=== PATIENT | female | born 1985 | race Caucasian/White ===

== ENCOUNTER 2017-09-14 12:57 | Emergency (ER) | payer OTHER ==
[~2017-09-14] VITALS: Ht 165.1 cm; Wt 86.2 kg
[~2017-09-14 12:57] MED LIST: ACE3 PO; ALB0.5 INH; AMOX-556 PO; ARIP5TAB28 PO; AZI250 PO; AZIT-18 PO; AZIT-9 PO; BACL-1 PO; BENZ200C38 PO; BUPR-128 PO; CALC-734 PO; CALC-965; CEP250 PO; CEP500 PO; CEPH-13 PO; CETI-169 PO; CHOL100061 PO; CITA-156 PO; CLA500 PO; CLI150 PO; CLON-303 *; CLON-303 PO; CLON-389 PO; CYC10 PO; CYCL10TA29 PO; CYCL15CA18 PO; DEXT5CAP PO; DOXY-181 PO; ESC10 PO; ETON1VAG7 VG; HYDR-385 PO; HYDR-6016 PO; HYDR100C9 PO; HYDR473S4 PO; HYDR473S47 PO; HYDR50CA48 PO; HYDROXYZINE PAMOATE; IBU600 PO; IBUP800T37 PO; KET10 PO; LOP2 PO; LOR1 PO; LOR5 PO; LOR5/325 PO; LORA-1456; LORA-674 PO; MELA3TAB45 PO; METH-278 PO; METH5TAB85 PO; MIR15 PO; MOM110R IH; NAP250 PO; ONDA4TAB PO; OXC300 PO; OXCA300T42 PO; OXYC-865 PO; OXYC1TAB54 PO; PAR20 PO; PARO-243 PO; PARO30TA71 PO; PER PO; PHEN100 PO; PHEN10TA PO; PRAV20TA66 PO; PRE20 PO; PRED-314 PO; PRED20TA6 PO; PREN-67 PO; PRO5 PO; PROM25SU9 RC; PROM5SYR PO; PROP60CA22; PROP60CA22 PO; PYRI50TA PO; QUET25TA PO; RANI150C17 PO; ROBC PO; SULF-198 PO; TOP25 PO; TOPI50CA6; TOPI50TA92 PO; TRAM-420 PO; TRAM-627 PO; VALP250C32 PO; [UNRECOGNIZED DRUG - CODE]; [UNRECOGNIZED DRUG - CODE]; [UNRECOGNIZED DRUG - CODE] PO; [UNRECOGNIZED DRUG - CODE] PO; [UNRECOGNIZED DRUG - OTHER]; [UNRECOGNIZED DRUG - OTHER]
[2017-09-14] MEDS ORDERED: predniSONE 20 MG TAB PO ONE (13:05)
[2017-09-14] MEDS ORDERED: diphenhydrAMINE 25 MG CAP PO ONE (13:05)
[2017-09-14] MEDS ORDERED: KETOROLAC 60 MG/2 ML VIAL IM ONE (13:05)
--- NOTE | 2017-09-14 13:07 | ER Report ---
History and Physical Time Seen By MD: 13:06 TUCKER/JANET CHIEF COMPLAINT: Migraine HISTORY OF PRESENT ILLNESS: Patient is a 29 through female history of migraine comes here she's been seen here numerous times currently on a care plan for migraine patient states his viable for 5 days [facility]'s [facility] here when she has breakthrough pain she's taken her home medications little benefit no focal deficits noted no additional complaints noted pain is localized primarily unilateral in the right side no photophobia or phonophobia no neurological complaints REVIEW OF SYSTEMS: Respiratory: No cough, no dyspnea. Cardiovascular: No chest pain, no palpitations. Gastrointestinal: No vomiting, no abdominal pain. Musculoskeletal: No back pain. Remainder of the 14 system rev: Yes Allergies: Coded Allergies: doxycycline (Verified Allergy, Severe, itchy/hives, 06/07/17) lamotrigine (Verified Adverse Reaction, Severe, itchy/hives, 06/07/17) naproxen (Verified Adverse Reaction, Severe, migraines, 06/07/17) Home Meds Reported Medications Quetiapine Fumarate (QUETIAPINE FUMARATE) 25 Mg Tablet, 25 MG PO QDAY 06/07/17 Bupropion Hcl (WELLBUTRIN) 100 Mg Tablet, 100 MG PO QDAY, TAB 10/06/15 Reviewed Nurses Notes: Yes Old Medical Records Reviewed: Yes Hx Smoking: Yes Smoking Status: Current: Every Day Smoker Exposure to Second Hand Smoke?: Yes Hx Substance Use Disorder: No Hx Alcohol Use: Yes Constitutional Vital Sign - Last 24 Hours 09/14/17 09/14/17 09/14/17 09/14/17 13:00 13:02 13:12 13:15 Pulse 95 90 Resp 20 B/P (MAP) 105/82 (90) 105/82 109/65 (80) Pulse Ox 94 96 O2 Delivery Room Air 09/14/17 09/14/17 09/14/17 09/14/17 13:27 13:30 13:42 13:45 Pulse 91 90 B/P (MAP) 112/82 (92) 110/70 (83) Pulse Ox 93 96 09/14/17 09/14/17 13:57 14:00 Pulse 84 B/P (MAP) 98/69 (79) Pulse Ox 95 Physical Exam General Appearance: The patient is alert, has no immediate need for airway protection and no current signs of toxicity. [ ] Eyes: Pupils equal and round no injection. Respiratory: Chest is non tender, lungs are clear to auscultation. Cardiac: regular rate and rhythm [ ] Gastrointestinal: Abdomen is soft and non tender, no masses, bowel sounds normal. Musculoskeletal: Neck: Neck is supple and non tender. Extremities have full range of motion and are non tender. Skin: No rashes or lesions. [ ] DIFFERENTIAL DIAGNOSIS: After history and physical exam differential diagnosis was considered for migraine Medical Decision Making ED Course/Re-evaluation ED Course ED clinical course medical decision making 32-year-old female with a history of chronic migraine was given her usual dose of medication she does feel better we' ll be discharge diagnosis chronic migraine Decision to Disposition Date: Sep 14, 2017 Decision to Disposition Time: 14:27 Depart Departure Latest Vital Signs Vital Signs Date Time Temp Pulse Resp B/P (MAP) Pulse Ox O2 Delivery O2 Flow Rate FiO2 09/14/17 14:00 98/69 (79) 09/14/17 13:57 84 95 09/14/17 13:02 20 Room Air Impression: Primary Impression: Headache Condition: Improved Disposition: HOME OR SELF-CARE Referrals: REECE ROSENBERG DNP, [facility] 5 Days Patient Instructions: Acute Headache (DC) CELINA MENENDEZ MD Sep 14, 2017 13:07
[2017-09-14 14:29] VITALS: BP 113/72
== END 2017-09-14 14:36 | disposition home or self-care (01) ==
LOC: ER 13:06
DX: G43.909 Migraine, unspecified, not intractable, without status migrainosus (principal); F17.210 Nicotine dependence, cigarettes, uncomplicated
CPT/HCPCS: 96372; 99283; J1885; J7512; Q0163

== ENCOUNTER 2017-10-11 02:07 | Emergency (ER) | payer OTHER ==
[~2017-10-11] VITALS: Ht 165.1 cm; Wt 86.2 kg
[2017-10-11 02:18] VITALS: BP 146/103
[2017-10-11] MEDS ORDERED: ALBU8.5H IH (02:32)
[2017-10-11] MEDS ORDERED: TOPI50TA92 PO (02:32)
[2017-10-11] MEDS ORDERED: PHEN200T32 PO (02:32)
[2017-10-11] MEDS ORDERED: CYCL10TA29 PO (02:32)
[2017-10-11] MEDS ORDERED: QUET25TA PO (02:32)
[2017-10-11] MEDS ORDERED: TRAZ-156 PO (02:32)
[2017-10-11] MEDS ORDERED: CHOL10005 PO (02:32)
[2017-10-11] MEDS ORDERED: CLON-303 PO (02:32)
[2017-10-11] MEDS ORDERED: PROL80 PO (02:32)
[2017-10-11] MEDS ORDERED: DICL-195 PO (02:32)
[2017-10-11] MEDS ORDERED: PRAV20TA65 PO (02:32)
[2017-10-11] MEDS ORDERED: CALC600T63 PO (02:32)
[2017-10-11] MEDS ORDERED: RANI-324 PO (02:32)
[2017-10-11] MEDS ORDERED: PARO-243 PO (02:32)
[2017-10-11] MEDS ORDERED: PROMETHAZINE 25 MG/ML 1 ML AMP IM ONE (02:35)
[2017-10-11] MEDS ORDERED: DIAZEPAM 10 MG/2 ML SYR IM ONE (02:35)
--- NOTE | 2017-10-11 02:42 | ER Report ---
History and Physical Time Seen By MD: 02:38 Hx. of Stated Complaint: MIGRAIN THAT STARTED YESTERDAY AND HAS GOTTEN WORSE TONIGHT HPI/ROS CHIEF COMPLAINT: Headache, migraine HISTORY OF PRESENT ILLNESS: 32-year-old female presents with her typical migraine except that it's on the left side only and behind the left eye, associated with photophobia and vomiting 1 in pseudoseizures 2 while entering the ER. Witnessed by mom brought her in. Mom states they do not live together in the 1 trailer home part. Her daughter called in distress and asked to be taken to the ER. Of note patient reports a sore throat and flu exposure from her kids who are in school. REVIEW OF SYSTEMS: Respiratory: No cough, no dyspnea. Cardiovascular: No chest pain, no palpitations. Gastrointestinal: No bloody vomiting, no abdominal pain. Musculoskeletal: No back pain. Allergies: Coded Allergies: doxycycline (Verified Allergy, Severe, itchy/hives, 10/11/17) lamotrigine (Verified Adverse Reaction, Severe, itchy/hives, 10/11/17) naproxen (Verified Adverse Reaction, Severe, migraines, 10/11/17) Home Meds Reported Medications Trazodone Hcl (TRAZODONE HCL) 50 Mg Tablet, 50 MG PO QHS 10/11/17 Topiramate (TOPIRAMATE) 50 Mg Tablet, 50 MG PO BID 10/11/17 Ranitidine Hcl (ZANTAC) 150 Mg Tablet, 150 MG PO BID, TAB 10/11/17 Quetiapine Fumarate (QUETIAPINE FUMARATE) 25 Mg Tablet, 25 MG PO 10/11/17 Phenazopyridine Hcl (PHENAZOPYRIDINE HCL) 200 Mg Tablet, 50 MG PO TID, TAB 10/11/17 Propranolol Hcl (PROPRANOLOL HCL) 80 Mg Capcr, 80 MG PO BID 10/11/17 Pravastatin Sodium (PRAVACHOL) 20 Mg Tablet, 40 MG PO QDAY, TAB 18 Paroxetine Hcl (PAXIL) 20 Mg Tablet, 40 MG PO QDAY, TAB 10/11/17 Diclofenac Sodium (DICLOFENAC SODIUM) 75 Mg Tablet.dr, 75 MG PO TID, TAB 10/11/17 Cyclobenzaprine Hcl (CYCLOBENZAPRINE HCL) 10 Mg Tablet, 10 MG PO TID, #9 TAB 10/11/17 Clonazepam (CLONAZEPAM) 1 Mg Tablet, 1 MG PO BID, #6 TAB 10/11/17 Cholecalciferol (Vitamin D3) (VITAMIN D3) 1,000 Unit Tablet, 1000 UNIT PO, TAB 10/11/17 Calcium Carbonate (CALCIUM) 600 Mg Tablet, 600 MG PO 10/11/17 Albuterol Sulfate 90 Mcg/Act (PROAIR HFA 90 MCG/ACT) 8.5 Gm Hfa.aer.ad, 1-2 PUFF IH 3-4XD, INHALER 10/11/17 Quetiapine Fumarate (QUETIAPINE FUMARATE) 25 Mg Tablet, 25 MG PO QDAY 06/07/17 Bupropion Hcl (WELLBUTRIN) 100 Mg Tablet, 100 MG PO QDAY, TAB 10/06/15 Hx Smoking: Yes Smoking Status: Current: Every Day Smoker Exposure to Second Hand Smoke?: Yes Hx Substance Use Disorder: No Hx Alcohol Use: Yes Constitutional Vital Sign - Last 24 Hours 10/11/17 02:18 Temp 98.2 Pulse 99 Resp 18 B/P (MAP) 146/103 Pulse Ox 97 O2 Delivery Room Air Physical Exam General Appearance: The patient is alert, has no immediate need for airway protection and no signs of toxicity. She appears to have a headache Eyes: Pupils equal and round no pallor or injection. ENT, Mouth: Mucous membranes are moist. Oropharynx is patent, mild erythema Respiratory: There are no retractions, lungs are clear to auscultation. Cardiovascular: Regular rate and rhythm. No murmurs gallops or rubs Gastrointestinal: Abdomen is soft and non tender, no masses, bowel sounds normal. Neurological: Normal gross neuro exam cranial nerves intact Skin: Warm and dry, no rashes. Musculoskeletal: Neck is supple non tender. Extremities are nontender, nonswollen and have full range of motion. No edema DIFFERENTIAL DIAGNOSIS: After history and physical exam differential diagnosis was considered for migraine no trauma to suggest intracranial hemorrhage recent CT scan or mass or other dangerous process recent ED visits treated for migraine and resolved she is on a patient care plan but is not aware of stipulations of that plan and states she only took Tylenol Motrin for her headache prior to arrival. Denies drugs or alcohol. Medical Decision Making Data Points Laboratory Hematology Test 10/11/17 03:08 Influenza Virus Type A (PCR) Negative (NEGATIVE) Influenza Virus Type B (PCR) Negative (NEGATIVE) Group A Streptococcus Screen Negative (NEGATIVE) Chemistry Test 10/11/17 03:08 Influenza Virus Type A (PCR) Negative (NEGATIVE) Influenza Virus Type B (PCR) Negative (NEGATIVE) Group A Streptococcus Screen Negative (NEGATIVE) ED Course/Re-evaluation ED Course Plan of care agreed-upon prior to orders placed Re-evaluation Patient sleeping easily aroused. Patient complains of ongoing pain does not feel like she can go home and sleep. I ordered one Ramona orally prior to discharge. I discussed her lab results treatment plan follow-up and reasons to return all questions were answered and understood. Mom present and will take the patient home. Decision to Disposition Date: Oct 11, 2017 Decision to Disposition Time: 04:04 Depart Departure Latest Vital Signs Vital Signs Date Time Temp Pulse Resp B/P (MAP) Pulse Ox O2 Delivery O2 Flow Rate FiO2 10/11/17 02:18 98.2 99 18 146/103 97 Room Air Impression: Primary Impression: Headache Additional Impression: Pseudoseizures Condition: Improved Disposition: HOME OR SELF-CARE New Scripts Butalbital/Aspirin/Caffeine (FIORINAL 50-325-40 MG CAPSULE) 1 Each Capsule 1-2 EACH PO Q4H, #20 CAPSULE Prov: ARSH MAYS MD 10/11/17 Patient Instructions: Migraine Headache (ED) Problem Qualifiers Primary Impression: Headache Headache type: other headache syndrome Qualified Codes: G44.89 - Other headache syndrome ARSH MAYS MD Oct 11, 2017 02:42
[2017-10-11] MEDS ORDERED: DIAZEPAM 5 MG TAB PO ONE (03:00)
[2017-10-11] MEDS ORDERED: DIAZEPAM 5 MG TAB ONE (03:00)
[2017-10-11] MEDS ORDERED: APAP/HYDROCODONE 325/7.5 TAB PO ONE (04:00)
[2017-10-11] MEDS ORDERED: BUTA1CAP51 PO (04:06)
== END 2017-10-11 04:40 | disposition home or self-care (01) ==
LOC: ER 02:48
DX: G44.89 Other headache syndrome (principal)
CPT/HCPCS: 87081; 87502; 87880; 96372; 99282; J2550

== ENCOUNTER 2017-10-18 15:09 | Emergency (ER) | payer OTHER ==
[~2017-10-18] VITALS: Ht 165.1 cm; Wt 83.9 kg
[~2017-10-18 15:09] MED LIST changes: +ALBU8.5H IH; +BUTA1CAP51 PO; +CALC600T63 PO; +CHOL10005 PO; +DICL-195 PO; +PHEN200T32 PO; +PRAV20TA65 PO; +PROL80 PO; +RANI-324 PO; +TRAZ-156 PO
--- NOTE | 2017-10-18 15:16 | ER Report ---
History and Physical Time Seen By MD: 15:15 HPI/ROS CHIEF COMPLAINT: Dark diarrhea HISTORY OF PRESENT ILLNESS: 29-year-old female presents with abdominal pain in the midepigastric and right upper quadrant area no prior abdominal surgery per patient report. Onset was "recent" .States she has never had diarrhea like this before and that has been explosive. She's been nauseated but has been taking marely and bananas to avoid vomiting. This strategy has been successful no fevers. No chest pain or shortness of breath. No urinary symptoms. No other concerns or complaints today. REVIEW OF SYSTEMS: Constitutional: No fever, no chills. Eyes: No discharge. ENT: No sore throat. Cardiovascular: No chest pain, no palpitations. Respiratory: No cough, no shortness of breath. Gastrointestinal: Otherwise negative Genitourinary: No hematuria. Musculoskeletal: No back pain. Skin: No rashes. Neurological: No headache. Allergies: Coded Allergies: doxycycline (Verified Allergy, Severe, itchy/hives, 10/18/17) lamotrigine (Verified Adverse Reaction, Severe, itchy/hives, 10/18/17) naproxen (Verified Adverse Reaction, Severe, migraines, 10/18/17) Home Meds Active Scripts Butalbital/Aspirin/Caffeine (FIORINAL 50-325-40 MG CAPSULE) 1 Each Capsule, 1-2 EACH PO Q4H, #20 CAPSULE Prov:ARSH MAYS MD 10/11/17 Reported Medications Trazodone Hcl (TRAZODONE HCL) 50 Mg Tablet, 50 MG PO QHS 10/11/17 Topiramate (TOPIRAMATE) 50 Mg Tablet, 50 MG PO BID 10/11/17 Ranitidine Hcl (ZANTAC) 150 Mg Tablet, 150 MG PO BID, TAB 10/11/17 Quetiapine Fumarate (QUETIAPINE FUMARATE) 25 Mg Tablet, 25 MG PO 10/11/17 Phenazopyridine Hcl (PHENAZOPYRIDINE HCL) 200 Mg Tablet, 50 MG PO TID, TAB 10/11/17 Propranolol Hcl (PROPRANOLOL HCL) 80 Mg Capcr, 80 MG PO BID 10/11/17 Pravastatin Sodium (PRAVACHOL) 20 Mg Tablet, 40 MG PO QDAY, TAB 10/11/17 Paroxetine Hcl (PAXIL) 20 Mg Tablet, 40 MG PO QDAY, TAB 10/11/17 Diclofenac Sodium (DICLOFENAC SODIUM) 75 Mg Tablet.dr, 75 MG PO TID, TAB 10/11/17 Cyclobenzaprine Hcl (CYCLOBENZAPRINE HCL) 10 Mg Tablet, 10 MG PO TID, #9 TAB 10/11/17 Clonazepam (CLONAZEPAM) 1 Mg Tablet, 1 MG PO BID, #6 TAB 10/11/17 Cholecalciferol (Vitamin D3) (VITAMIN D3) 1,000 Unit Tablet, 1000 UNIT PO, TAB 10/11/17 Calcium Carbonate (CALCIUM) 600 Mg Tablet, 600 MG PO 10/11/17 Albuterol Sulfate 90 Mcg/Act (PROAIR HFA 90 MCG/ACT) 8.5 Gm Hfa.aer.ad, 1-2 PUFF IH 3-4XD, INHALER 10/11/17 Quetiapine Fumarate (QUETIAPINE FUMARATE) 25 Mg Tablet, 25 MG PO QDAY 06/07/17 Bupropion Hcl (WELLBUTRIN) 100 Mg Tablet, 100 MG PO QDAY, TAB 10/06/15 Hx Smoking: Yes Smoking Status: Current: Every Day Smoker Exposure to Second Hand Smoke?: Yes Hx Substance Use Disorder: No Hx Alcohol Use: Yes Constitutional Vital Sign - Last 24 Hours 10/18/17 15:16 Temp 97.6 Pulse 86 Resp 16 B/P (MAP) 124/81 Pulse Ox 97 O2 Delivery Room Air Physical Exam General Appearance: The patient is alert, has no immediate need for airway protection and no signs of toxicity. She appears anxious and highly animated Eyes: Pupils equal and round no pallor or injection. ENT, Mouth: Mucous membranes are moist. Respiratory: There are no retractions, lungs are clear to auscultation. Cardiovascular: Regular rate and rhythm. No murmurs gallops or rubs Gastrointestinal: Abdomen is soft and tender midepigastric and right upper quadrant with negative Ayon sign and no guarding no rebound, no masses, bowel sounds normal. Neurological: Normal Psychiatric: Louise dramatic, anxious Skin: Warm and dry, no rashes. Musculoskeletal: Neck is supple non tender. Extremities are nontender, nonswollen and have full range of motion. No edema. DIFFERENTIAL DIAGNOSIS: After history and physical exam differential diagnosis was considered for upper GI bleed, lower GI bleed, gastritis,, disease, Munchhausen syndrome, peptic ulcer disease, this is an incomplete list of diagnoses considered Medical Decision Making Data Points Result Diagram: 10/18/17 1535 10/18/17 1535 Laboratory Hematology Test 10/18/17 15:15 10/18/17 15:35 Urine Color Yellow Urine Clarity Slightly-cloudy Urine pH 5.0 pH (4.8-9.5) Urine Specific [place] 1.008 Urine Protein Negative mg/dL (NEGATIVE) Urine Glucose (UA) Negative mg/dL (NEGATIVE) Urine Ketones Negative mg/dL (NEGATIVE) Urine Blood Negative (NEGATIVE) Urine Nitrite Negative (NEGATIVE) Urine Bilirubin Negative (NEGATIVE) Urine Urobilinogen Negative mg/dL (0.2-1.9) Urine Leukocyte Esterase Small (NEGATIVE) Urine RBC 1 /HPF (0-2/HPF) Urine WBC 2 /HPF (0-5/HPF) Urine Squamous Epithelial Cells Many /LPF (</=FEW) Urine Bacteria Negative /HPF (NONE-FEW) Urine Mucus None /HPF (NONE-FEW) Urine Opiates Screen Negative Urine Barbiturates Screen Positive Ur Tricyclic Antidepressants Screen Negative Urine Phencyclidine Screen Negative Urine Amphetamines Screen Negative Urine Benzodiazepines Screen Negative Urine Cocaine Screen Negative Urine Cannabinoids Screen Negative Red Blood Count 4.63 M/uL (4.17-5.56) Mean Corpuscular Volume 93.2 fL (80.0-96.0) Mean Corpuscular Hemoglobin 32.0 pg (26.0-33.0) Mean Corpuscular Hemoglobin Concent 34.3 g/dL (32.0-36.0) Red Cell Distribution Width 12.9 % (11.5-14.5) Mean Platelet Volume 8.6 fL (7.2-11.1) Neutrophils (%) (Auto) 49.2 % (39.4-72.5) Lymphocytes (%) (Auto) 41.2 % (17.6-49.6) Monocytes (%) (Auto) 6.6 % (4.1-12.4) Eosinophils (%) (Auto) 2.3 % (0.4-6.7) Basophils (%) (Auto) 0.7 % (0.3-1.4) Nucleated RBC Relative Count (auto) 0.0 /100WBC Neutrophils # (Auto) 7.0 K/uL (2.0-7.4) Lymphocytes # (Auto) 5.9 K/uL (1.3-3.6) Monocytes # (Auto) 0.9 K/uL (0.3-1.0) Eosinophils # (Auto) 0.3 K/uL (0.0-0.5) Basophils # (Auto) 0.1 K/uL (0.0-0.1) Nucleated RBC Absolute Count (auto) 0.01 K/uL Sodium Level 140 mmol/L (137-145) Potassium Level 3.8 mmol/L (3.5-5.0) Chloride Level 108 mmol/L (98-107) Carbon Dioxide Level 18 mmol/L (22-31) Blood Urea Nitrogen 12 mg/dl (7-18) Creatinine 0.90 mg/dl (0.52-1.04) Glomerular Filtration Rate Calc > 60.0 Random Glucose 104 mg/dl (75-110) Calcium Level 9.5 mg/dl (8.4-10.2) Total Bilirubin 0.2 mg/dl (0.2-1.3) Aspartate Amino Transf (AST/SGOT) 35 U/L (0-35) Alanine Aminotransferase (ALT/SGPT) 33 U/L (0-56) Alkaline Phosphatase 118 U/L (0-126) Total Protein 7.2 gm/dl (6.3-8.2) Albumin 4.2 g/dl (3.5-5.0) Lipase 43 U/L (23-300) Human Chorionic Gonadotropin, Qual Negative (NEGATIVE) Chemistry Test 10/18/17 15:15 10/18/17 15:35 Urine Color Yellow Urine Clarity Slightly-cloudy Urine pH 5.0 pH (4.8-9.5) Urine Specific [place] 1.008 Urine Protein Negative mg/dL (NEGATIVE) Urine Glucose (UA) Negative mg/dL (NEGATIVE) Urine Ketones Negative mg/dL (NEGATIVE) Urine Blood Negative (NEGATIVE) Urine Nitrite Negative (NEGATIVE) Urine Bilirubin Negative (NEGATIVE) Urine Urobilinogen Negative mg/dL (0.2-1.9) Urine Leukocyte Esterase Small (NEGATIVE) Urine RBC 1 /HPF (0-2/HPF) Urine WBC 2 /HPF (0-5/HPF) Urine Squamous Epithelial Cells Many /LPF (</=FEW) Urine Bacteria Negative /HPF (NONE-FEW) Urine Mucus None /HPF (NONE-FEW) Urine Opiates Screen Negative Urine Barbiturates Screen Positive Ur Tricyclic Antidepressants Screen Negative Urine Phencyclidine Screen Negative Urine Amphetamines Screen Negative Urine Benzodiazepines Screen Negative Urine Cocaine Screen Negative Urine Cannabinoids Screen Negative White Blood Count 14.3 k/uL (4.5-11.0) Red Blood Count 4.63 M/uL (4.17-5.56) Hemoglobin 14.8 g/dL (12.0-16.0) Hematocrit 43.2 % (34.0-47.0) Mean Corpuscular Volume 93.2 fL (80.0-96.0) Mean Corpuscular Hemoglobin 32.0 pg (26.0-33.0) Mean Corpuscular Hemoglobin Concent 34.3 g/dL (32.0-36.0) Red Cell Distribution Width 12.9 % (11.5-14.5) Platelet Count 262 K/uL (150-450) Mean Platelet Volume 8.6 fL (7.2-11.1) Neutrophils (%) (Auto) 49.2 % (39.4-72.5) Lymphocytes (%) (Auto) 41.2 % (17.6-49.6) Monocytes (%) (Auto) 6.6 % (4.1-12.4) Eosinophils (%) (Auto) 2.3 % (0.4-6.7) Basophils (%) (Auto) 0.7 % (0.3-1.4) Nucleated RBC Relative Count (auto) 0.0 /100WBC Neutrophils # (Auto) 7.0 K/uL (2.0-7.4) Lymphocytes # (Auto) 5.9 K/uL (1.3-3.6) Monocytes # (Auto) 0.9 K/uL (0.3-1.0) Eosinophils # (Auto) 0.3 K/uL (0.0-0.5) Basophils # (Auto) 0.1 K/uL (0.0-0.1) Nucleated RBC Absolute Count (auto) 0.01 K/uL Glomerular Filtration Rate Calc > 60.0 Calcium Level 9.5 mg/dl (8.4-10.2) Total Bilirubin 0.2 mg/dl (0.2-1.3) Aspartate Amino Transf (AST/SGOT) 35 U/L (0-35) Alanine Aminotransferase (ALT/SGPT) 33 U/L (0-56) Alkaline Phosphatase 118 U/L (0-126) Total Protein 7.2 gm/dl (6.3-8.2) Albumin 4.2 g/dl (3.5-5.0) Lipase 43 U/L (23-300) Human Chorionic Gonadotropin, Qual Negative (NEGATIVE) Toxicology Test 10/18/17 15:15 Urine Opiates Screen Negative Urine Barbiturates Screen Positive Ur Tricyclic Antidepressants Screen Negative Urine Phencyclidine Screen Negative Urine Amphetamines Screen Negative Urine Benzodiazepines Screen Negative Urine Cocaine Screen Negative Urine Cannabinoids Screen Negative Urinalysis Test 10/18/17 15:15 Urine Color Yellow Urine Clarity Slightly-cloudy Urine pH 5.0 pH (4.8-9.5) Urine Specific [place] 1.008 Urine Protein Negative mg/dL (NEGATIVE) Urine Glucose (UA) Negative mg/dL (NEGATIVE) Urine Ketones Negative mg/dL (NEGATIVE) Urine Blood Negative (NEGATIVE) Urine Nitrite Negative (NEGATIVE) Urine Bilirubin Negative (NEGATIVE) Urine Urobilinogen Negative mg/dL (0.2-1.9) Urine Leukocyte Esterase Small (NEGATIVE) Urine RBC 1 /HPF (0-2/HPF) Urine WBC 2 /HPF (0-5/HPF) Urine Squamous Epithelial Cells Many /LPF (</=FEW) Urine Bacteria Negative /HPF (NONE-FEW) Urine Mucus None /HPF (NONE-FEW) ED Course/Re-evaluation ED Course Plan of care agree upon prior to orders placed Re-evaluation 10/18/2017 5:11:44 pm patient in the bathroom has been making multiple attempts to obtain a stool sample for further testing has been able to do so thus far. Results discussed, prognosis homecare outpatient follow-up and reasons to return were discussed. Decision to Disposition Date: Oct 18, 2017 Decision to Disposition Time: 17:12 Depart Departure Latest Vital Signs Vital Signs Date Time Temp Pulse Resp B/P (MAP) Pulse Ox O2 Delivery O2 Flow Rate FiO2 10/18/17 15:16 97.6 86 16 124/81 97 Room Air Impression: Primary Impression: Abdominal pain Additional Impression: Diarrhea in adult patient Condition: Improved Disposition: HOME OR SELF-CARE New Scripts Loperamide Hcl/Simethicone (IMODIUM MULTI-SYMPTOM REL CPLT) 1 Each Tablet 1 EACH PO 2-4XD Y for DIARRHEA for 7 Days, #28 CAP Prov: ARSH MAYS MD 10/18/17 Ondansetron (ZOFRAN ODT) 4 Mg Tab.rapdis 4 MG PO Q6H Y for NAUSEA/VOMITING, #20 TAB.ABRAHAM 0 Refills Prov: ARSH MAYS MD 10/18/17 Famotidine (PEPCID) 20 Mg Tablet 20 MG PO QDAY Y for PAIN, #20 TAB Prov: ARSH MAYS MD 10/18/17 Dicyclomine Hcl (DICYCLOMINE HCL) 20 Mg Tablet 20 MG PO QID Y for CRAMPING for 7 Days, #20 CAP Prov: ARSH MAYS MD 10/18/17 Patient Instructions: Acute Diarrhea (ED) Problem Qualifiers Primary Impression: Abdominal pain Abdominal location: epigastric Qualified Codes: R10.13 - Epigastric pain ARSH MAYS MD Oct 18, 2017 15:16
[2017-10-18] MEDS ORDERED: LORazepam 2 MG/ML VIAL IVP ONE (15:45)
[2017-10-18] MEDS ORDERED: NS(*) 0.9% 1000 ML BAG 1,000 ML IV ONE (15:45)
[2017-10-18] MEDS ORDERED: FAMOTIDINE(*) 20MG/50ML PREMIX 50 ML IVPB ONE (15:45)
[2017-10-18] MEDS ORDERED: GI COCKTAIL 60 ML BTL PO PRN (15:45)
[2017-10-18] MEDS ORDERED: fentaNYL CITR 100 MCG/2 ML AMP IVP ONE (15:45)
[2017-10-18 15:52] LABS: PLATELET COUNT, AUTOMATED 262 K/uL (150-450)
[2017-10-18] MEDS ORDERED: LIDOCAINE 2% VISC SLN 15ML UDC PO ONE (16:10)
[2017-10-18] MEDS ORDERED: MAG HYD/AL HYD/SIMETH 30ML UDC PO ONE (16:10)
[2017-10-18] MEDS ORDERED: ATRO/SCOPOL/HYOSCY/PB 5 ML ELX PO ONE (16:10)
--- NOTE | 2017-10-18 16:50 | RADIOLOGY IMAGING REPORT ---
FACILITY: [facility] [place] PATIENT NAME: Miguel Moore : 1985 MR: [id number] V: [id number] EXAM DATE: ORDERING PHYSICIAN: ARSH MAYS TECHNOLOGIST: Location: [facility] Patient: Miguel Moore : 1985 Visit/Account:[id number] Date of Sevice: 10/18/2017 EXAMINATION: Portable AP Chest HISTORY: Abdominal pain. COMPARISON: 11/02/2014. FINDINGS: The lungs are clear. No focal consolidation or pleural effusion. No pneumothorax. Normal cardiomedi astinal silhouette, with normal heart size and pulmonary vascularity. Visualized osseous structures are unremarkable. IMPRESSION: Negative chest. Report Dictated By: Parvez Miller MD at 10/18/2017 4:45 PM Report E-Signed By: Parvez Miller MD at 10/18/2017 4:47 PM [id number]
--- NOTE | 2017-10-18 16:54 | RADIOLOGY IMAGING REPORT ---
FACILITY: [facility] PATIENT NAME: Miguel Moore : 1985 MR: [id number] V: [id number] EXAM DATE: ORDERING PHYSICIAN: ARSH MAYS TECHNOLOGIST: Location: [facility] Patient: Miguel Moore : 1985 Visit/Account:[id number] Date of Sevice: 10/18/2017 EXAMINATION: AP abdomen HISTORY: Abdominal pain. COMPARISON: CT abdomen/pelvis 01/15/2016. FINDINGS: Normal bowel gas pattern, with air scattered throughout normal-caliber loops of small bowel and colon . No radiographic evidence of obstruction. Moderate scattered colonic stool density. Moderate hepatomegaly. The liver measures 22 cm in length at the midclavicular line. No suspicious ca lcification. Visualized osseous structures appear intact. IMPRESSION: 1. Nonobstructive bowel gas pattern, with a moderate volume of colonic stool. 2. Hepatomegaly. Report Dictated By: Parvez Miller MD at 10/18/2017 4:47 PM Report E-Signed By: Parvez Miller MD at 10/18/2017 4:50 PM [id number]
[2017-10-18] MEDS ORDERED: FAMO20TA28 PO (17:18)
[2017-10-18] MEDS ORDERED: ONDA4TAB PO (17:18)
[2017-10-18] MEDS ORDERED: DICY20TA70 PO (17:18)
[2017-10-18] MEDS ORDERED: LOPE1TAB55 PO (17:18)
[2017-10-18 17:30] VITALS: BP 119/98
== END 2017-10-18 17:31 | disposition home or self-care (01) ==
LOC: ER 15:18
DX: R19.7 Diarrhea, unspecified (principal); R10.13 Epigastric pain
CPT/HCPCS: 71045; 74018; 80305; 81001; 83690; 84703; 85025; 96365; 99284; J3490; 82040; 82247; 82310; 82374; 82435; 82565; 82947; 84075; 84132; 84155; 84295; 84450; 84460; 84520

== ENCOUNTER 2017-10-25 11:45 | Emergency (ER) | payer OTHER ==
[~2017-10-25] VITALS: Ht 165.1 cm; Wt 84.8 kg
[~2017-10-25 11:45] MED LIST changes: +DICY20TA70 PO; +FAMO20TA28 PO; +LOPE1TAB55 PO
--- NOTE | 2017-10-25 11:53 | ER Report ---
History and Physical Time Seen By MD: 11:52 HPI/ROS CHIEF COMPLAINT: Tailbone pain HISTORY OF PRESENT ILLNESS: This is a 32-year-old female who presents to the emergency department for "tailbone pain". Patient states 2 days ago she slipped on some ice and fell flat on her bottom injuring her tailbone, [facility] today and instructed her to cancel her appointment with the chiropractor and come to the emergency department for evaluation. Patient states that she's had bad pain since the injury but no loss of bowel or bladder no saddle anesthesia. Patient states that it's been difficult to have a bowel movement because the pain is so intense. She has been treating her discomfort with [id number] medications as well as topical medications. Patient denies aches, chills, fevers, nausea or vomiting. REVIEW OF SYSTEMS: Respiratory: No cough, no dyspnea. Cardiovascular: No chest pain, no palpitations. Gastrointestinal: No vomiting, no abdominal pain. Musculoskeletal: As above. Allergies: Coded Allergies: doxycycline (Verified Allergy, Severe, itchy/hives, 10/25/17) lamotrigine (Verified Adverse Reaction, Severe, itchy/hives, 10/25/17) naproxen (Verified Adverse Reaction, Severe, migraines, 10/25/17) Uncoded Allergies: ORANGES (Adverse Reaction, Unknown, 10/25/17) SEAFOOD (Adverse Reaction, Unknown, 10/25/17) Home Meds Active Scripts Diclofenac Sodium (DICLOFENAC SODIUM) 75 Mg Tablet.dr, 75 MG PO BID, #20 TAB Prov:TIM BEAVERS [employer]- 10/25/17 Ondansetron (ZOFRAN ODT) 4 Mg Tab.rapdis, 4 MG PO Q6H Y for NAUSEA/VOMITING, # 20 TAB.ABRAHAM 0 Refills Prov:ASRH MAYS MD 10/18/17 Dicyclomine Hcl (DICYCLOMINE HCL) 20 Mg Tablet, 20 MG PO QID Y for CRAMPING for 7 Days, #20 CAP Prov:ARSH MAYS MD 10/18/17 Butalbital/Aspirin/Caffeine (FIORINAL 50-325-40 MG CAPSULE) 1 Each Capsule, 1-2 EACH PO Q4H, #20 CAPSULE Prov:ARSH MAYS MD 10/11/17 Reported Medications Trazodone Hcl (TRAZODONE HCL) 50 Mg Tablet, 50 MG PO QHS 10/11/17 Topiramate (TOPIRAMATE) 50 Mg Tablet, 50 MG PO BID 10/11/17 Pravastatin Sodium (PRAVACHOL) 20 Mg Tablet, 40 MG PO QDAY, TAB 10/11/17 Paroxetine Hcl (PAXIL) 20 Mg Tablet, 40 MG PO QDAY, TAB 10/11/17 Diclofenac Sodium (DICLOFENAC SODIUM) 75 Mg Tablet.dr, 75 MG PO TID, TAB 10/11/17 Clonazepam (CLONAZEPAM) 1 Mg Tablet, 1 MG PO BID, #6 TAB 10/11/17 Cholecalciferol (Vitamin D3) (VITAMIN D3) 1,000 Unit Tablet, 1000 UNIT PO, TAB 10/11/17 Calcium Carbonate (CALCIUM) 600 Mg Tablet, 600 MG PO 10/11/17 Albuterol Sulfate 90 Mcg/Act (PROAIR HFA 90 MCG/ACT) 8.5 Gm Hfa.aer.ad, 1-2 PUFF IH 3-4XD, INHALER 10/11/17 Discontinued Reported Medications Ranitidine Hcl (ZANTAC) 150 Mg Tablet, 150 MG PO BID, TAB 10/11/17 Quetiapine Fumarate (QUETIAPINE FUMARATE) 25 Mg Tablet, 25 MG PO 10/11/17 Phenazopyridine Hcl (PHENAZOPYRIDINE HCL) 200 Mg Tablet, 50 MG PO TID, TAB 10/11/17 Propranolol Hcl (PROPRANOLOL HCL) 80 Mg Capcr, 80 MG PO BID 10/11/17 Cyclobenzaprine Hcl (CYCLOBENZAPRINE HCL) 10 Mg Tablet, 10 MG PO TID, #9 TAB 10/11/17 Quetiapine Fumarate (QUETIAPINE FUMARATE) 25 Mg Tablet, 25 MG PO QDAY 06/07/17 Bupropion Hcl (WELLBUTRIN) 100 Mg Tablet, 100 MG PO QDAY, TAB 10/06/15 Discontinued Scripts Loperamide Hcl/Simethicone (IMODIUM MULTI-SYMPTOM REL CPLT) 1 Each Tablet, 1 EACH PO 2-4XD Y for DIARRHEA for 7 Days, #28 CAP Prov:ARSH MAYS MD 10/18/17 Famotidine (PEPCID) 20 Mg Tablet, 20 MG PO QDAY Y for PAIN, #20 TAB Prov:ARSH MAYS MD 10/18/17 Past Medical/Surgical History Patient has a past medical and surgical history of seizures, migraines, hypercholesterolemia, asthma, tubal ligation, chronic back pain, on the treatment program, PTSD, depression, anxiety, suicide attempt, right thumb injury, bursa removed from hip, wears dentures, all teeth have been extracted. Reviewed Nurses Notes: Yes Hx Smoking: Yes Smoking Status: Current: Every Day Smoker Exposure to Second Hand Smoke?: Yes Hx Substance Use Disorder: No Hx Alcohol Use: Yes Constitutional Vital Sign - Last 24 Hours 10/25/17 10/25/17 10/25/17 10/25/17 11:45 11:49 12:15 12:30 Temp 97.5 Pulse 90 92 69 Resp 20 B/P (MAP) 122/84 105/66 (79) Pulse Ox 90 93 10/25/17 10/25/17 10/25/17 10/25/17 12:35 12:40 12:41 13:32 Pulse 71 68 70 B/P (MAP) 98/60 (73) 108/50 (69) Pulse Ox 91 91 92 Physical Exam General Appearance: The patient is alert, has no immediate need for airway protection and no current signs of toxicity. Eyes: Pupils equal and round no injection. Respiratory: Chest is non tender, lungs are clear to auscultation. Cardiac: regular rate and rhythm, no murmurs, clicks or rubs. Gastrointestinal: Abdomen is soft and non tender, no masses, bowel sounds normal. Musculoskeletal: Neck: Neck is supple and non tender. Tenderness from the thoracic spine down to the sacrum and coccyx. Hypersensitive to touch. Extremities have full range of motion and are non tender. Skin: No rashes or lesions. No contusions. DIFFERENTIAL DIAGNOSIS: After history and physical exam differential diagnosis was considered for contusion, coccyx fracture, sacral fracture, lumbar fracture , lumbar strain and sacral strain. Medical Decision Making EKG/Imaging Imaging TECHNIQUE: LUMBAR SPINE 2 OR 3 VIEW, SACRUM COCCYX COMPARISON: CT abdomen and pelvis April 06, 2016 FINDINGS: Lumbar spine: There are 5 nonrib-bearing lumbar-type vertebral bodies. No evidence of fracture or dislocation. No significant degenerative findings. Pelvis: The pelvic ring is intact. No fracture identified. The calcific densities projected in the pelvis along the right pelvic side wall are of uncertain significance. IMPRESSION: No acute osseous abnormality. Report Dictated By: Tianna Rivera MD at 10/25/2017 12:58 PM Report E-Signed By: Tianna Rivera MD at 10/25/2017 1:04 PM WSN:[id number] INDICATION: fall 2 days ago, pain. DATE: 10/25/2017 12:58 PM. TECHNIQUE: LUMBAR SPINE 2 OR 3 VIEW, SACRUM COCCYX COMPARISON: CT abdomen and pelvis April 06, 2016 FINDINGS: Lumbar spine: There are 5 nonrib-bearing lumbar-type vertebral bodies. No evidence of fracture or dislocation. No significant degenerative findings. Pelvis: The pelvic ring is intact. No fracture identified. The calcific densities projected in the pelvis along the right pelvic side wall are of uncertain significance. IMPRESSION: No acute osseous abnormality. Report Dictated By: Tianna Rivera MD at 10/25/2017 12:58 PM Report E-Signed By: Tianna Rivera MD at 10/25/2017 1:04 PM [id number] ED Course/Re-evaluation ED Course The patient was admitted to room. A history of physical were obtained. Differential diagnoses were considered. A lumbar and sacrum and coccyx x-ray were obtained. X-ray results were unremarkable for any acute osseous abnormalities. Patient was given 10 mg by mouth Toradol. Patient states she can take some of the other NSAIDs just not naproxen. I did review these results with the patient to tell her that this is likely a contusion that she did not break anything and this will be sore for maybe a week or 2, she can manage this pain at home with [id number] medications I did send a precaution for diclofenac over to her pharmacy. Patient asked for stronger pain medications I told her that the anti-inflammatories will be better for her, as well as physical therapy, which I did write a prescription for. I did tell her to follow up with her [facility] provider in 2 days. Decision to Disposition Date: Oct 25, 2017 Decision to Disposition Time: 13:22 Depart Departure Latest Vital Signs Vital Signs Date Time Temp Pulse Resp B/P (MAP) Pulse Ox O2 Delivery O2 Flow Rate FiO2 10/25/17 13:32 70 108/50 (69) 92 10/25/17 11:49 97.5 20 Impression: Primary Impression: Coccyx pain Condition: Improved Disposition: HOME OR SELF-CARE New Scripts Diclofenac Sodium (DICLOFENAC SODIUM) 75 Mg Tablet. 75 MG PO BID, #20 TAB Prov: TIM BEAVERS 10/25/17 Patient Instructions: Coccyx Injury (ED) Additional Instructions: Drink plenty of fluids. Get plenty of rest. Take the medications as prescribed. Keep your Primary care appointment on . May return to the ED for worsening symptoms or any other concerns. TIM BEAVERS Oct 25, 2017 11:53
[2017-10-25] MEDS ORDERED: KETOROLAC TROM 10MG TAB PO ONE (12:40)
--- NOTE | 2017-10-25 13:08 | RADIOLOGY IMAGING REPORT ---
FACILITY: [facility] [place] PATIENT NAME: Miguel Moore : 1985 MR: [id number] V: [id number] EXAM DATE: ORDERING PHYSICIAN: TIM BEAVERS TECHNOLOGIST: Location: [facility] [place] Patient: Miguel Moore : 1985 Visit/Account:[id number] Date of Sevice: 10/25/2017 INDICATION: fall 2 days ago, pain. DATE: 10/25/2017 12:58 PM. TECHNIQUE: LUMBAR SPINE 2 OR 3 VIEW, SACRUM COCCYX COMPARISON: CT abdomen and pelvis April 06, 2016 FINDINGS: Lumbar spine: There are 5 nonrib-bearing lumbar-type vertebral bodies. No evidence of fracture or dis location. No significant degenerative findings. Pelvis: The pelvic ring is intact. No fracture identified. The calcific densities projected in the pe lvis along the right pelvic side wall are of uncertain significance. IMPRESSION: No acute osseous abnormality. Report Dictated By: Tianna Rivera MD at 10/25/2017 12:58 PM Report E-Signed By: Tianna Rivera MD at 10/25/2017 1:04 PM [id number]
--- NOTE | 2017-10-25 13:08 | RADIOLOGY IMAGING REPORT ---
FACILITY: [facility] PATIENT NAME: Miguel Moore : 1985 MR: [id number] V: [id number] EXAM DATE: ORDERING PHYSICIAN: TIM BEAVERS TECHNOLOGIST: [place] [facility] [place] : 1985 Visit/Account:[id number] Date of Sevice: 10/25/2017 INDICATION: fall 2 days ago, pain. DATE: 10/25/2017 12:58 PM. TECHNIQUE: LUMBAR SPINE 2 OR 3 VIEW, SACRUM COCCYX COMPARISON: CT abdomen and pelvis April 06, 2016 FINDINGS: Lumbar spine: There are 5 nonrib-bearing lumbar-type vertebral bodies. No evidence of fracture or dis location. No significant degenerative findings. Pelvis: The pelvic ring is intact. No fracture identified. The calcific densities projected in the pe lvis along the right pelvic side wall are of uncertain significance. IMPRESSION: No acute osseous abnormality. Report Dictated By: Tianna Rivera MD at 10/25/2017 12:58 PM Report E-Signed By: Tianna Rivera MD at 10/25/2017 1:04 PM [id number]
[2017-10-25] MEDS ORDERED: DICL-195 PO (13:24)
[2017-10-25 13:32] VITALS: BP 108/50
== END 2017-10-25 13:30 | disposition home or self-care (01) ==
LOC: ER 11:51
DX: M53.3 Sacrococcygeal disorders, not elsewhere classified (principal)
CPT/HCPCS: 72100; 72220; 99283

== ENCOUNTER 2018-05-20 15:49 | Emergency (ER) | payer OTHER ==
[~2018-05-20 15:49] MED LIST changes: +CLON-304 PO; -RANI-324 PO; +RANI-366 PO; -TRAZ-156 PO; +TRAZ50TA34 PO
--- NOTE | 2018-05-20 16:00 | ER Report ---
History and Physical Time Seen By MD: 15:59 HPI/ROS CHIEF COMPLAINT: Abdominal pain HISTORY OF PRESENT ILLNESS: 33-year-old female patient presents to emergency room with complaint of abdominal pain. Patient states that she's been having pain for the last 24 hours. She states that she has had some nausea but states that she took some marely which seemed to help considerably. She states that she has pain with any type of movement or activity. She denies any vomiting or diarrhea. She states that aside from the marely she is not taking any medication for this. She states the pain doesn't seem to radiate anywhere else. She denies having any fevers or chills. REVIEW OF SYSTEMS: Respiratory: No cough, no dyspnea. Cardiovascular: No chest pain, no palpitations. Gastrointestinal: As noted above Musculoskeletal: No back pain. Allergies: Coded Allergies: doxycycline (Verified Allergy, Severe, itchy/hives, 10/25/17) lamotrigine (Verified Adverse Reaction, Severe, itchy/hives, 10/25/17) naproxen (Verified Adverse Reaction, Severe, migraines, 10/25/17) Uncoded Allergies: ORANGES (Adverse Reaction, Unknown, 10/25/17) SEAFOOD (Adverse Reaction, Unknown, 10/25/17) Home Meds Active Scripts Hydrocodone Bit/Acetaminophen (HYDROCODON-ACETAMINOPHEN 5-325) 1 Each Tablet, 1 EACH PO Q4-6H PRN for PAIN, #12 TAB Prov:ANTONETTE MENEZES [facility] 05/20/18 Metronidazole (FLAGYL) 500 Mg Tablet, 500 MG PO BID, #20 TAB Prov:ANTONETTE MENEZES [facility] 05/20/18 Amoxicillin/Pot Clav 875-125 Mg Tab (AUGMENTIN 875-125 TABLET) 1 Each Tablet, 1 TAB PO Q12H, #20 TAB Prov:ANTONETTE MENEZES [facility] 05/20/18 Reported Medications Sertraline Hcl (SERTRALINE HCL) 50 Mg Tablet, 1 TAB PO QDAY, TAB 05/20/18 Ranitidine Hcl (ZANTAC) 150 Mg Tablet, 300 MG PO BID, TAB 05/20/18 Propranolol Hcl (PROPRANOLOL HCL) 80 Mg Capcr, 80 MG PO BID 05/20/18 Cyclobenzaprine Hcl (CYCLOBENZAPRINE HCL) 10 Mg Tablet, 10 MG PO TID, #9 TAB 05/20/18 Cetirizine Hcl (ZYRTEC) 10 Mg Tablet, 10 MG PO QDAY, TAB 05/20/18 Amitriptyline Hcl (AMITRIPTYLINE HCL) 50 Mg Tablet, 50 MG PO QHS, #5 TAB 05/20/18 Topiramate (TOPIRAMATE) 50 Mg Tablet, 50 MG PO BID 10/11/17 Pravastatin Sodium (PRAVACHOL) 20 Mg Tablet, 40 MG PO QDAY, TAB 10/11/17 Paroxetine Hcl (PAXIL) 20 Mg Tablet, 40 MG PO QDAY, TAB 10/11/17 Clonazepam (CLONAZEPAM) 1 Mg Tablet, 1 MG PO BID, #6 TAB 10/11/17 Cholecalciferol (Vitamin D3) (VITAMIN D3) 1,000 Unit Tablet, 1000 UNIT PO, TAB 10/11/17 Albuterol Sulfate 90 Mcg/Act (PROAIR HFA 90 MCG/ACT) 8.5 Gm Hfa.aer.ad, 1-2 PUFF IH 3-4XD, INHALER 10/11/17 Discontinued Reported Medications Trazodone Hcl (TRAZODONE HCL) 50 Mg Tablet, 50 MG PO QHS 10/11/17 Diclofenac Sodium (DICLOFENAC SODIUM) 75 Mg Tablet.dr, 75 MG PO TID, TAB 10/11/17 Calcium Carbonate (CALCIUM) 600 Mg Tablet, 600 MG PO 10/11/17 Discontinued Scripts Diclofenac Sodium (DICLOFENAC SODIUM) 75 Mg Tablet.dr, 75 MG PO BID, #20 TAB Prov:TIM BEAVERS [employer] 10/25/17 Ondansetron (ZOFRAN ODT) 4 Mg Tab.rapdis, 4 MG PO Q6H PRN for NAUSEA/VOMITING, #20 TAB.ABRAHAM 0 Refills Prov:ARSH MAYS MD 10/18/17 Dicyclomine Hcl (DICYCLOMINE HCL) 20 Mg Tablet, 20 MG PO QID PRN for CRAMPING for 7 Days, #20 CAP Prov:ARSH MAYS MD 10/18/17 Butalbital/Aspirin/Caffeine (FIORINAL 50-325-40 MG CAPSULE) 1 Each Capsule, 1-2 EACH PO Q4H, #20 CAPSULE Prov:ARSH MAYS MD 10/11/17 Past Medical/Surgical History Patient has a past medical history of seizures, migraines, hyperlipidemia, asthma, back pain, PTSD, depression, suicide attempt. Patient has a surgical history of dental surgery, bursa removed from right hip, right thumb surgery, tubal ligation. Patient has a family medical history of stroke, diabetes. Reviewed Nurses Notes: Yes Hx Smoking: Yes Smoking Status: Current: Every Day Smoker Exposure to Second Hand Smoke?: Yes Hx Substance Use Disorder: No Hx Alcohol Use: No Constitutional Vital Sign - Last 24 Hours 05/20/18 05/20/18 05/20/18 15:57 16:00 16:30 Temp 98.4 Pulse 94 92 86 Resp 18 B/P (MAP) 120/75 114/72 (86) 101/72 (82) Pulse Ox 93 95 96 Physical Exam General Appearance: The patient is alert, has no immediate need for airway protection and no current signs of toxicity. Respiratory: Chest is non tender, lungs are clear to auscultation. Cardiac: regular rate and rhythm Gastrointestinal: Abdomen is soft and tender in the right lower quadrant, no masses, bowel sounds normal. Musculoskeletal: Neck: Neck is supple and non tender. Extremities have full range of motion and are non tender. Skin: No rashes or lesions. DIFFERENTIAL DIAGNOSIS: After history and physical exam differential diagnosis was considered for abdominal pain including but not limited to appendicitis, cholecystitis, gastritis and urinary tract infection. Medical Decision Making Data Points Result Diagram: 05/20/18 1608 05/20/18 1608 Laboratory Hematology Test 05/20/18 15:53 05/20/18 16:08 Urine Color Yellow Urine Clarity Clear Urine pH 6.0 pH (4.8-9.5) Urine Specific Notrees 1.011 Urine Protein Negative mg/dL (NEGATIVE) Urine Glucose (UA) Negative mg/dL (NEGATIVE) Urine Ketones Negative mg/dL (NEGATIVE) Urine Blood Negative (NEGATIVE) Urine Nitrite Negative (NEGATIVE) Urine Bilirubin Negative (NEGATIVE) Urine Urobilinogen Negative mg/dL (0.2-1.9) Urine Leukocyte Esterase Negative (NEGATIVE) Urine RBC <1 /HPF (0-2/HPF) Urine WBC <1 /HPF (0-5/HPF) Urine Squamous Epithelial Cells Many /LPF (</=FEW) Urine Bacteria Negative /HPF (NONE-FEW) Urine Mucus None /HPF (NONE-FEW) Red Blood Count 4.60 M/uL (4.17-5.56) Mean Corpuscular Volume 92.4 fL (80.0-96.0) Mean Corpuscular Hemoglobin 31.3 pg (26.0-33.0) Mean Corpuscular Hemoglobin Concent 33.9 g/dL (32.0-36.0) Red Cell Distribution Width 13.5 % (11.5-14.5) Mean Platelet Volume 8.9 fL (7.2-11.1) Neutrophils (%) (Auto) 54.1 % (39.4-72.5) Lymphocytes (%) (Auto) 38.0 % (17.6-49.6) Monocytes (%) (Auto) 5.5 % (4.1-12.4) Eosinophils (%) (Auto) 1.6 % (0.4-6.7) Basophils (%) (Auto) 0.8 % (0.3-1.4) Nucleated RBC Relative Count (auto) 0.1 /100WBC Neutrophils # (Auto) 8.3 K/uL (2.0-7.4) Lymphocytes # (Auto) 5.8 K/uL (1.3-3.6) Monocytes # (Auto) 0.8 K/uL (0.3-1.0) Eosinophils # (Auto) 0.2 K/uL (0.0-0.5) Basophils # (Auto) 0.1 K/uL (0.0-0.1) Nucleated RBC Absolute Count (auto) 0.01 K/uL Sodium Level 140 mmol/L (137-145) Potassium Level 3.9 mmol/L (3.5-5.0) Chloride Level 109 mmol/L (98-107) Carbon Dioxide Level 20 mmol/L (22-31) Blood Urea Nitrogen 13 mg/dl (7-18) Creatinine 1.00 mg/dl (0.52-1.04) Glomerular Filtration Rate Calc > 60.0 Random Glucose 107 mg/dl (75-110) Calcium Level 9.5 mg/dl (8.4-10.2) Total Bilirubin 0.3 mg/dl (0.2-1.3) Aspartate Amino Transf (AST/SGOT) 41 U/L (0-35) Alanine Aminotransferase (ALT/SGPT) 35 U/L (0-56) Alkaline Phosphatase 107 U/L (0-126) C-Reactive Protein 4.3 mg/dl (<1.0) Total Protein 7.4 g/dl (6.3-8.2) Albumin 4.3 g/dl (3.5-5.0) Amylase Level 50 U/L (0-110) Lipase 27 U/L (23-300) Chemistry Test 05/20/18 15:53 05/20/18 16:08 Urine Color Yellow Urine Clarity Clear Urine pH 6.0 pH (4.8-9.5) Urine Specific Notrees 1.011 Urine Protein Negative mg/dL (NEGATIVE) Urine Glucose (UA) Negative mg/dL (NEGATIVE) Urine Ketones Negative mg/dL (NEGATIVE) Urine Blood Negative (NEGATIVE) Urine Nitrite Negative (NEGATIVE) Urine Bilirubin Negative (NEGATIVE) Urine Urobilinogen Negative mg/dL (0.2-1.9) Urine Leukocyte Esterase Negative (NEGATIVE) Urine RBC <1 /HPF (0-2/HPF) Urine WBC <1 /HPF (0-5/HPF) Urine Squamous Epithelial Cells Many /LPF (</=FEW) Urine Bacteria Negative /HPF (NONE-FEW) Urine Mucus None /HPF (NONE-FEW) White Blood Count 15.3 k/uL (4.5-11.0) Red Blood Count 4.60 M/uL (4.17-5.56) Hemoglobin 14.4 g/dL (12.0-16.0) Hematocrit 42.5 % (34.0-47.0) Mean Corpuscular Volume 92.4 fL (80.0-96.0) Mean Corpuscular Hemoglobin 31.3 pg (26.0-33.0) Mean Corpuscular Hemoglobin Concent 33.9 g/dL (32.0-36.0) Red Cell Distribution Width 13.5 % (11.5-14.5) Platelet Count 305 K/uL (150-450) Mean Platelet Volume 8.9 fL (7.2-11.1) Neutrophils (%) (Auto) 54.1 % (39.4-72.5) Lymphocytes (%) (Auto) 38.0 % (17.6-49.6) Monocytes (%) (Auto) 5.5 % (4.1-12.4) Eosinophils (%) (Auto) 1.6 % (0.4-6.7) Basophils (%) (Auto) 0.8 % (0.3-1.4) Nucleated RBC Relative Count (auto) 0.1 /100WBC Neutrophils # (Auto) 8.3 K/uL (2.0-7.4) Lymphocytes # (Auto) 5.8 K/uL (1.3-3.6) Monocytes # (Auto) 0.8 K/uL (0.3-1.0) Eosinophils # (Auto) 0.2 K/uL (0.0-0.5) Basophils # (Auto) 0.1 K/uL (0.0-0.1) Nucleated RBC Absolute Count (auto) 0.01 K/uL Glomerular Filtration Rate Calc > 60.0 Calcium Level 9.5 mg/dl (8.4-10.2) Total Bilirubin 0.3 mg/dl (0.2-1.3) Aspartate Amino Transf (AST/SGOT) 41 U/L (0-35) Alanine Aminotransferase (ALT/SGPT) 35 U/L (0-56) Alkaline Phosphatase 107 U/L (0-126) C-Reactive Protein 4.3 mg/dl (<1.0) Total Protein 7.4 g/dl (6.3-8.2) Albumin 4.3 g/dl (3.5-5.0) Amylase Level 50 U/L (0-110) Lipase 27 U/L (23-300) Urinalysis Test 05/20/18 15:53 Urine Color Yellow Urine Clarity Clear Urine pH 6.0 pH (4.8-9.5) Urine Specific Notrees 1.011 Urine Protein Negative mg/dL (NEGATIVE) Urine Glucose (UA) Negative mg/dL (NEGATIVE) Urine Ketones Negative mg/dL (NEGATIVE) Urine Blood Negative (NEGATIVE) Urine Nitrite Negative (NEGATIVE) Urine Bilirubin Negative (NEGATIVE) Urine Urobilinogen Negative mg/dL (0.2-1.9) Urine Leukocyte Esterase Negative (NEGATIVE) Urine RBC <1 /HPF (0-2/HPF) Urine WBC <1 /HPF (0-5/HPF) Urine Squamous Epithelial Cells Many /LPF (</=FEW) Urine Bacteria Negative /HPF (NONE-FEW) Urine Mucus None /HPF (NONE-FEW) EKG/Imaging Imaging COMPUTED TOMOGRAPHY OF THE Abdomen and Pelvis with CONTRAST INDICATION: Abdominal pain. TECHNIQUE: Contiguous axial 3.[address] images were obtained through the abdomen and pelvis after 75 mL [id number]. Coronal and sagittal reformatted images were submitted. COMPARISON: CT abdomen and pelvis April 06, 2016. FINDINGS: Lung bases: The lung bases are clear. Liver and hepatic vasculature: Liver parenchymal density is diffusely decreased. Mild fatty infiltration adjacent to the falciform. The hepatic and portal veins are well opacified. Gallbladder and bile ducts: Normal. Spleen: Normal spleen. Small splenule near the hilum. Pancreas: Normal Adrenals: Normal Kidneys, ureters and bladder: No hydronephrosis or collecting system obstruction. Symmetric enhancement. Normal-appearing bladder. There is a pessary in place. Retroperitoneum and aorta: Normal caliber aorta. GI tract, mesentery and peritoneum: Normal appendix. There is an area of mild to moderate inflammation in the fat adjacent to the sigmoid colon in the low mid pelvis on series 2 image 129. The colonic wall is mildly thickened. The stranding outlines several fat lobulations. No bowel obstruction. No free fluid or free air. Uterus and adnexa: The uterus is grossly unremarkable. Bones and soft tissues: No acute osseous abnormality. IMPRESSION: 1. Stranding adjacent to the sigmoid colon in the mid lower pelvis with adjacent colonic wall thickening may represent colitis or epiploic appendagitis as there did not appear to be diverticula in this region. Follow-up colonoscopy may be warranted to exclude an underlying colonic wall lesion. 2. Hepatic steatosis. 3. Additional chronic findings as above. One of the following dose optimization techniques was utilized in the perfor jose of this exam: Automated exposure control; adjustment of the mA and/or kV according to the patient's size; or use of an iterative reconstruction technique. Specific details can be referenced in the facility's radiology CT exam operational policy. Report Dictated By: Tianna Rivera MD at 05/20/2018 4:57 PM Report E-Signed By: Tianna Rivera MD at 05/20/2018 5:12 PM ED Course/Re-evaluation ED Course Patient was medicated exam room, history and physical were obtained. Differential diagnoses were considered. On examination lungs are clear, heart is regular, abdomen is soft and tender in the right lower quadrant. A CBC, CMP, urinalysis, CT scan of abdomen and pelvis were done. Patient had an elevated white count of 15,000 with no left shift. CMP was unremarkable. The CAT scan did show some inflammation and thickening at the sigmoid colon consistent with a colitis. I discussed the findings with the patient. We will go ahead and place her on Augmentin and Flagyl for the colitis. We'll also give her limited supply of pain medication. Patient is to follow-up with her primary care provider in the next week. She is return to the emergency room if condition worsens. Patient verbalized understanding and agreement with plan. Decision to Disposition Date: May 20, 2018 Decision to Disposition Time: 17:35 Depart Departure Latest Vital Signs Vital Signs Date Time Temp Pulse Resp B/P (MAP) Pulse Ox O2 Delivery O2 Flow Rate FiO2 05/20/18 16:30 86 101/72 (82) 96 05/20/18 15:57 98.4 18 Impression: Primary Impression: Colitis Condition: Improved Disposition: HOME OR SELF-CARE New Scripts Hydrocodone Bit/Acetaminophen (HYDROCODON-ACETAMINOPHEN 5-325) 1 Each Tablet 1 EACH PO Q4-6H PRN for PAIN, #12 TAB Prov: ANTONETTE MENEZES 05/20/18 Metronidazole (FLAGYL) 500 Mg Tablet 500 MG PO BID, #20 TAB Prov: ANTONETTE MENEZES 05/20/18 Amoxicillin/Pot Clav 875-125 Mg Tab (AUGMENTIN 875-125 TABLET) 1 Each Tablet 1 TAB PO Q12H, #20 TAB Prov: ANTONETTE MENEZES 05/20/18 Patient Instructions: Colitis (ED) Additional Instructions: Increase fluid intake. Get plenty of rest. Follow up with your primary care provider in the next week. Return to the ER if condition worsens. Limit activity by pain. ANTONETTE MENEZES May 20, 2018 15:59
[2018-05-20] MEDS ORDERED: NS(*) 0.9% 1000 ML BAG 1,000 ML IV ONE (16:04)
[2018-05-20] MEDS ORDERED: PROL80 PO (16:05)
[2018-05-20] MEDS ORDERED: CYCL10TA29 PO (16:05)
[2018-05-20] MEDS ORDERED: AMIT-108 PO (16:05)
[2018-05-20] MEDS ORDERED: CETI-176 PO (16:05)
[2018-05-20] MEDS ORDERED: SERT-184 PO (16:05)
[2018-05-20] MEDS ORDERED: RANI-366 PO (16:05)
[2018-05-20] MEDS ORDERED: IOPAMIDOL 76% 75 ML INFUS BTL 75 ML ONE (16:17)
[2018-05-20 16:19] LABS: PLATELET COUNT, AUTOMATED 305 K/uL (150-450)
[2018-05-20 16:30] VITALS: BP 101/72
--- NOTE | 2018-05-20 17:15 | RADIOLOGY IMAGING REPORT ---
FACILITY: [facility] PATIENT NAME: Miguel Moore : 1985 MR: [id number] V: [id number] EXAM DATE: ORDERING PHYSICIAN: ANTONETTE MENEZES TECHNOLOGIST: Location: [facility] Patient: Miguel Moore : 1985 Visit/Account:[id number] Date of Sevice: 05/20/2018 COMPUTED TOMOGRAPHY OF THE Abdomen and Pelvis with CONTRAST INDICATION: Abdominal pain. TECHNIQUE: Contiguous axial 3.[address] images were obtained through the abdomen and pelvis after 75 m L Isovue-370. Coronal and sagittal reformatted images were submitted. COMPARISON: CT abdomen and pelvis April 06, 2016. FINDINGS: Lung bases: The lung bases are clear. Liver and hepatic vasculature: Liver parenchymal density is diffusely decreased. Mild fatty infiltr ation adjacent to the falciform. The hepatic and portal veins are well opacified. Gallbladder and bile ducts: Normal. Spleen: Normal spleen. Small splenule near the hilum. Pancreas: Normal Adrenals: Normal Kidneys, ureters and bladder: No hydronephrosis or collecting system obstruction. Symmetric enhance ment. Normal-appearing bladder. There is a pessary in place. Retroperitoneum and aorta: Normal caliber aorta. GI tract, mesentery and peritoneum: Normal appendix. There is an area of mild to moderate inflammati on in the fat adjacent to the sigmoid colon in the low mid pelvis on series 2 image 129. The colonic wall is mildly thickened. The stranding outlines several fat lobulations. No bowel obstruction. N o free fluid or free air. Uterus and adnexa: The uterus is grossly unremarkable. Bones and soft tissues: No acute osseous abnormality. IMPRESSION: 1. Stranding adjacent to the sigmoid colon in the mid lower pelvis with adjacent colonic wall thicke micah may represent colitis or epiploic appendagitis as there did not appear to be diverticula in this region. Follow-up colonoscopy may be warranted to exclude an underlying colonic wall lesion. 2. Hepatic steatosis. 3. Additional chronic findings as above. One of the following dose optimization techniques was utilized in the performance of this exam: Autom ated exposure control; adjustment of the mA and/or kV according to the patient's size; or use of an i terative reconstruction technique. Specific details can be referenced in the facility's radiology C T exam operational policy. Report Dictated By: Tianna Rivera MD at 05/20/2018 4:57 PM Report E-Signed By: Tianna Rivera MD at 05/20/2018 5:12 PM WSN:[email or web address]
[2018-05-20] MEDS ORDERED: AMOX-559 PO (17:31)
[2018-05-20] MEDS ORDERED: HYDR-385 PO (17:31)
[2018-05-20] MEDS ORDERED: METR-1 PO (17:31)
== END 2018-05-20 17:45 | disposition home or self-care (01) ==
LOC: ER 15:55
DX: K52.9 Noninfective gastroenteritis and colitis, unspecified (principal)
CPT/HCPCS: 74177; 81001; 82150; 83690; 85025; 86140; 96360; 99284; J7030; Q9967; 82040; 82247; 82310; 82374; 82435; 82565; 82947; 84075; 84132; 84155; 84295; 84450; 84460; 84520

== ENCOUNTER 2018-06-06 15:42 | Emergency (ER) | payer OTHER ==
[~2018-06-06 15:42] MED LIST changes: +AMIT-108 PO; +AMOX-559 PO; +CETI-176 PO; +METR-1 PO; +SERT-184 PO
--- NOTE | 2018-06-06 15:44 | ER Report ---
History and Physical Time Seen By MD: 15:44 HPI/ROS CHIEF COMPLAINT: abdominal pain for 3 weeks HISTORY OF PRESENT ILLNESS: PT states that she was here with colitis mid may. PT states she took her abx but still having pain. Pain was inte rmittent but now constant for last several days. Pain goes across lower abdomen and into back. PT vomited on tuesday but still nauseated. has had 4-5 episodes of diarrhea a day. no fevers. + chills. abd is crampy. no dysuria. no vaginal d/c REVIEW OF SYSTEMS: Constitutional: No fever, + chills. Eyes: No discharge. ENT: No sore throat. Cardiovascular: No chest pain, no palpitations. Respiratory: No cough, no shortness of breath. Gastrointestinal: + abdominal pain, +nausea, + vomiting, + diarrhea Genitourinary: No hematuria. Musculoskeletal: No back pain. Skin: No rashes. Neurological: No headache. Allergies: Coded Allergies: doxycycline (Verified Allergy, Severe, itchy/hives, 06/06/18) lamotrigine (Verified Adverse Reaction, Severe, itchy/hives, 06/06/18) naproxen (Verified Adverse Reaction, Severe, migraines, 06/06/18) Uncoded Allergies: ORANGES (Adverse Reaction, Unknown, 10/25/17) SEAFOOD (Adverse Reaction, Unknown, 10/25/17) Home Meds Reported Medications Sertraline Hcl (SERTRALINE HCL) 50 Mg Tablet, 1 TAB PO QDAY, TAB 05/20/18 Ranitidine Hcl (ZANTAC) 150 Mg Tablet, 300 MG PO BID, TAB 05/20/18 Propranolol Hcl (PROPRANOLOL HCL) 80 Mg Capcr, 80 MG PO BID 05/20/18 Cyclobenzaprine Hcl (CYCLOBENZAPRINE HCL) 10 Mg Tablet, 10 MG PO TID, #9 TAB 05/20/18 Amitriptyline Hcl (AMITRIPTYLINE HCL) 50 Mg Tablet, 50 MG PO QHS, #5 TAB 05/20/18 Topiramate (TOPIRAMATE) 50 Mg Tablet, 50 MG PO BID 10/11/17 Pravastatin Sodium (PRAVACHOL) 20 Mg Tablet, 40 MG PO QDAY, TAB 10/11/17 Paroxetine Hcl (PAXIL) 20 Mg Tablet, 40 MG PO QDAY, TAB 10/11/17 Clonazepam (CLONAZEPAM) 1 Mg Tablet, 1 MG PO BID, #6 TAB 10/11/17 Cholecalciferol (Vitamin D3) (VITAMIN D3) 1,000 Unit Tablet, 1000 UNIT PO, TAB 10/11/17 Albuterol Sulfate 90 Mcg/Act (PROAIR HFA 90 MCG/ACT) 8.5 Gm Hfa.aer.ad, 1-2 PUFF IH 3-4XD, INHALER 10/11/17 Discontinued Reported Medications Cetirizine Hcl (ZYRTEC) 10 Mg Tablet, 10 MG PO QDAY, TAB 05/20/18 Discontinued Scripts Hydrocodone Bit/Acetaminophen (HYDROCODON-ACETAMINOPHEN 5-325) 1 Each Tablet, 1 EACH PO Q4-6H PRN for PAIN, #12 TAB Prov:ANTONETTE MENEZES [facility] 05/20/18 Metronidazole (FLAGYL) 500 Mg Tablet, 500 MG PO BID, #20 TAB Prov:ANTONETTE MENEZES [facility] 05/20/18 Amoxicillin/Pot Clav 875-125 Mg Tab (AUGMENTIN 875-125 TABLET) 1 Each Tablet, 1 TAB PO Q12H, #20 TAB Prov:ANTONETTE MENEZES [facility] 05/20/18 Past Medical/Surgical History Pmhx: seizures?, migraines, hyperlipidemia, asthma, back pain, PTSD, depression, suicide attempt Pshx: f dental surgery, bursa removed from right hip, right thumb surgery, tubal ligation Pfhx; stroke, diabetes. Reviewed Nurses Notes: Yes Old Medical Records Reviewed: Yes Hx Smoking: Yes Smoking Status: Current: Every Day Smoker Exposure to Second Hand Smoke?: Yes Hx Substance Use Disorder: No Hx Alcohol Use: No Constitutional Vital Sign - Last 24 Hours 06/06/18 06/06/18 06/06/18 06/06/18 15:55 15:57 16:12 16:42 Temp 97.6 Pulse 90 84 86 Resp 16 B/P (MAP) 115/78 115/78 (90) Pulse Ox 94 94 95 O2 Delivery Room Air Physical Exam General Appearance: The patient is alert, has no immediate need for airway protection and no signs of toxicity. Eyes: Pupils equal and round no pallor or injection, EOMI ENT: no pharyngeal erythema or exudates, Mucous membranes are moist, TM are nl b/l Respiratory: There are no retractions, lungs are clear to auscultation. Cardiovascular: Regular rate and rhythm. pulses are equal and symmetrical Gastrointestinal: Abdomen is soft but diffusely tender, no masses, bowel sounds normal, no guarding, no rigidity or rebound Neurological: Cranial nerves II-XII grossly intact, no sensory or motor loss Skin: Warm and dry, no rashes. Musculoskeletal: Neck is supple non tender, no vertebral tenderness Extremities are nontender, non swollen and have full range of motion. DIFFERENTIAL DIAGNOSIS: After history and physical exam differential diagnosis was considered for colitis, c.diff, ibs, appendiciits, uti, pyelonephritis, pancreatitis, gastroenteritis, pid Medical Decision Making Data Points Result Diagram: 06/06/18 1611 06/06/18 1611 Laboratory Hematology Test 06/06/18 15:53 06/06/18 15:58 06/06/18 16:11 Urine HCG, Qualitative Negative (NEGATIVE) Urine Color Yellow Urine Clarity Clear Urine pH 5.0 pH (4.8-9.5) Urine Specific [place] 1.019 Urine Protein Negative mg/dL (NEGATIVE) Urine Glucose (UA) Negative mg/dL (NEGATIVE) Urine Ketones Negative mg/dL (NEGATIVE) Urine Blood Negative (NEGATIVE) Urine Nitrite Negative (NEGATIVE) Urine Bilirubin Negative (NEGATIVE) Urine Urobilinogen Negative mg/dL (0.2-1.9) Urine Leukocyte Esterase Negative (NEGATIVE) Urine RBC None /HPF (0-2/HPF) Urine WBC 1 /HPF (0-5/HPF) Urine Squamous Epithelial Cells Many /LPF (</=FEW) Urine Bacteria Negative /HPF (NONE-FEW) Urine Mucus Few /HPF (NONE-FEW) Red Blood Count 4.63 M/uL (4.17-5.56) Mean Corpuscular Volume 92.6 fL (80.0-96.0) Mean Corpuscular Hemoglobin 31.3 pg (26.0-33.0) Mean Corpuscular Hemoglobin Concent 33.8 g/dL (32.0-36.0) Red Cell Distribution Width 13.7 % (11.5-14.5) Mean Platelet Volume 8.7 fL (7.2-11.1) Neutrophils (%) (Auto) 52.2 % (39.4-72.5) Lymphocytes (%) (Auto) 38.5 % (17.6-49.6) Monocytes (%) (Auto) 5.9 % (4.1-12.4) Eosinophils (%) (Auto) 2.0 % (0.4-6.7) Basophils (%) (Auto) 1.4 % (0.3-1.4) Nucleated RBC Relative Count (auto) 0.1 /100WBC Neutrophils # (Auto) 7.9 K/uL (2.0-7.4) Lymphocytes # (Auto) 5.8 K/uL (1.3-3.6) Monocytes # (Auto) 0.9 K/uL (0.3-1.0) Eosinophils # (Auto) 0.3 K/uL (0.0-0.5) Basophils # (Auto) 0.2 K/uL (0.0-0.1) Nucleated RBC Absolute Count (auto) 0.01 K/uL Sodium Level 142 mmol/L (137-145) Potassium Level 3.9 mmol/L (3.5-5.0) Chloride Level 110 mmol/L (98-107) Carbon Dioxide Level 17 mmol/L (22-31) Blood Urea Nitrogen 11 mg/dl (7-18) Creatinine 0.80 mg/dl (0.52-1.04) Glomerular Filtration Rate Calc > 60.0 Random Glucose 107 mg/dl (75-110) Calcium Level 9.8 mg/dl (8.4-10.2) Total Bilirubin 0.3 mg/dl (0.2-1.3) Aspartate Amino Transf (AST/SGOT) 36 U/L (0-35) Alanine Aminotransferase (ALT/SGPT) 41 U/L (0-56) Alkaline Phosphatase 115 U/L (0-126) Total Protein 7.5 g/dl (6.3-8.2) Albumin 4.3 g/dl (3.5-5.0) Amylase Level 45 U/L (0-110) Lipase 26 U/L (23-300) Chemistry Test 06/06/18 15:53 06/06/18 15:58 06/06/18 16:11 Urine HCG, Qualitative Negative (NEGATIVE) Urine Color Yellow Urine Clarity Clear Urine pH 5.0 pH (4.8-9.5) Urine Specific [place] 1.019 Urine Protein Negative mg/dL (NEGATIVE) Urine Glucose (UA) Negative mg/dL (NEGATIVE) Urine Ketones Negative mg/dL (NEGATIVE) Urine Blood Negative (NEGATIVE) Urine Nitrite Negative (NEGATIVE) Urine Bilirubin Negative (NEGATIVE) Urine Urobilinogen Negative mg/dL (0.2-1.9) Urine Leukocyte Esterase Negative (NEGATIVE) Urine RBC None /HPF (0-2/HPF) Urine WBC 1 /HPF (0-5/HPF) Urine Squamous Epithelial Cells Many /LPF (</=FEW) Urine Bacteria Negative /HPF (NONE-FEW) Urine Mucus Few /HPF (NONE-FEW) White Blood Count 15.2 k/uL (4.5-11.0) Red Blood Count 4.63 M/uL (4.17-5.56) Hemoglobin 14.5 g/dL (12.0-16.0) Hematocrit 42.9 % (34.0-47.0) Mean Corpuscular Volume 92.6 fL (80.0-96.0) Mean Corpuscular Hemoglobin 31.3 pg (26.0-33.0) Mean Corpuscular Hemoglobin Concent 33.8 g/dL (32.0-36.0) Red Cell Distribution Width 13.7 % (11.5-14.5) Platelet Count 336 K/uL (150-450) Mean Platelet Volume 8.7 fL (7.2-11.1) Neutrophils (%) (Auto) 52.2 % (39.4-72.5) Lymphocytes (%) (Auto) 38.5 % (17.6-49.6) Monocytes (%) (Auto) 5.9 % (4.1-12.4) Eosinophils (%) (Auto) 2.0 % (0.4-6.7) Basophils (%) (Auto) 1.4 % (0.3-1.4) Nucleated RBC Relative Count (auto) 0.1 /100WBC Neutrophils # (Auto) 7.9 K/uL (2.0-7.4) Lymphocytes # (Auto) 5.8 K/uL (1.3-3.6) Monocytes # (Auto) 0.9 K/uL (0.3-1.0) Eosinophils # (Auto) 0.3 K/uL (0.0-0.5) Basophils # (Auto) 0.2 K/uL (0.0-0.1) Nucleated RBC Absolute Count (auto) 0.01 K/uL Glomerular Filtration Rate Calc > 60.0 Calcium Level 9.8 mg/dl (8.4-10.2) Total Bilirubin 0.3 mg/dl (0.2-1.3) Aspartate Amino Transf (AST/SGOT) 36 U/L (0-35) Alanine Aminotransferase (ALT/SGPT) 41 U/L (0-56) Alkaline Phosphatase 115 U/L (0-126) Total Protein 7.5 g/dl (6.3-8.2) Albumin 4.3 g/dl (3.5-5.0) Amylase Level 45 U/L (0-110) Lipase 26 U/L (23-300) Urinalysis Test 06/06/18 15:53 06/06/18 15:58 Urine HCG, Qualitative Negative (NEGATIVE) Urine Color Yellow Urine Clarity Clear Urine pH 5.0 pH (4.8-9.5) Urine Specific [place] 1.019 Urine Protein Negative mg/dL (NEGATIVE) Urine Glucose (UA) Negative mg/dL (NEGATIVE) Urine Ketones Negative mg/dL (NEGATIVE) Urine Blood Negative (NEGATIVE) Urine Nitrite Negative (NEGATIVE) Urine Bilirubin Negative (NEGATIVE) Urine Urobilinogen Negative mg/dL (0.2-1.9) Urine Leukocyte Esterase Negative (NEGATIVE) Urine RBC None /HPF (0-2/HPF) Urine WBC 1 /HPF (0-5/HPF) Urine Squamous Epithelial Cells Many /LPF (</=FEW) Urine Bacteria Negative /HPF (NONE-FEW) Urine Mucus Few /HPF (NONE-FEW) ED Course/Re-evaluation Clinical Indication for ER IV: IV Access ED Course check labs. Repeat CT to compare to pts ct on 05/20 since symptoms worsening 06/06/2018 5:30:57 pm Pts labs show no siginficant change from her prior labs. Pts Ct still shows a small segement of inflammation of her colon however it is much improved when compared to her prior on may 20. Pt was unable to provide a stool sample in the emergency department. I recommend pt follow up for colon scopy due to her hx of abd pain and colitis. will send home with aniya. pt declined nausea medication stating she takes "marely at home". Decision to Disposition Date: Jun 06, 2018 Decision to Disposition Time: 17:33 Depart Departure Latest Vital Signs Vital Signs Date Time Temp Pulse Resp B/P (MAP) Pulse Ox O2 Delivery O2 Flow Rate FiO2 06/06/18 16:42 86 95 06/06/18 15:57 115/78 (90) 06/06/18 15:55 97.6 16 Room Air Impression: Primary Impression: Abdominal pain Condition: Improved Disposition: HOME OR SELF-CARE Referrals: CLAUDIO JANG MD call to make an appointment for colonscopy New Scripts Dicyclomine Hcl (DICYCLOMINE HCL) 20 Mg Tablet 20 MG PO Q6-8H PRN for PAIN, #21 TAB Prov: JOHNATHON ALFARO DO 06/06/18 Patient Instructions: Abdominal Pain (ED) Additional Instructions: Your cat scan today showed improvement to the inflammation you had on your imaging in May. Recommend you follow up with an out patient Colonoscopy to have further evaluation of your bowels. Bentyl one every 6 hours as needed for pain. Return as needed. Problem Qualifiers Primary Impression: Abdominal pain Abdominal location: lower abdomen, unspecified Qualified Codes: R10.30 - Lower abdominal pain, unspecified JOHNATHON ALFARO DO Jun 06, 2018 15:44
[2018-06-06] MEDS ORDERED: IOPAMIDOL 76% 75 ML INFUS BTL 75 ML ONE (16:17)
[2018-06-06 16:20] LABS: PLATELET COUNT, AUTOMATED 336 K/uL (150-450)
--- NOTE | 2018-06-06 17:22 | RADIOLOGY IMAGING REPORT ---
FACILITY: [facility] [place] PATIENT NAME: Miguel Moore : 1985 MR: [id number] V: [id number] EXAM DATE: ORDERING PHYSICIAN: JOHNATHON ALFARO TECHNOLOGIST: Location: [facility] Patient: Miguel Moore : 1985 Visit/Account:[id number] Date of Sevice: 06/06/2018 COMPUTED TOMOGRAPHY OF THE Abdomen and Pelvis with CONTRAST INDICATION: Abdominal pain with history of colitis. TECHNIQUE: Contiguous axial 3.[address] images were obtained through the abdomen and pelvis after 75 m L Isovue-370. Coronal and sagittal reformatted images were submitted. COMPARISON: CT abdomen and pelvis May 20, 2018. FINDINGS: Lung bases: The lung bases are clear. Liver and hepatic vasculature: Liver parenchymal density is diffusely decreased. No ascites. Mild fatty infiltration adjacent to falciform. Gallbladder and bile ducts: Normal Spleen: Normal. Small splenule near the hilum. Pancreas: Normal Adrenals: Normal Kidneys, ureters and bladder: Symmetric renal enhancement. No hydronephrosis or collecting system o bstruction. Decompressed bladder. No stones. Presumed pessary in place. Retroperitoneum and aorta: Normal caliber aorta. GI tract, mesentery and peritoneum: No bowel obstruction. No free fluid or free air. Normal appendi x. No findings of diverticulitis. There is mild inflammation adjacent to a fat lobulation in the si gmoid region on series 2 image 136. The degree of inflammation has decreased since the prior CT of [facility]2017. Uterus and adnexa: Unremarkable uterus. Bones and soft tissues: No acute osseous abnormality. IMPRESSION: 1. Decreasing inflammation adjacent to the sigmoid colon. 2. Additional chronic findings as above. One of the following dose optimization techniques was utilized in the performance of this exam: Autom ated exposure control; adjustment of the mA and/or kV according to the patient's size; or use of an i terative reconstruction technique. Specific details can be referenced in the facility's radiology C T exam operational policy. Report Dictated By: Tianna Rivera MD at 06/06/2018 5:00 PM Report E-Signed By: Tianna Rivera MD at 06/06/2018 5:18 PM WSN:[facility]
[2018-06-06 17:30] VITALS: BP 97/56
[2018-06-06] MEDS ORDERED: DICYCLOMINE HCL 10 MG CAP PO ONE (17:30)
[2018-06-06] MEDS ORDERED: DICY20TA70 PO (17:37)
== END 2018-06-06 17:52 | disposition home or self-care (01) ==
LOC: ER 15:50
DX: R10.30 Lower abdominal pain, unspecified (principal)
CPT/HCPCS: 74177; 81001; 81025; 82150; 83690; 85025; 99284; Q9967; 82040; 82247; 82310; 82374; 82435; 82565; 82947; 84075; 84132; 84155; 84295; 84450; 84460; 84520

== ENCOUNTER → 2018-08-16 | Outpatient (CLI) | payer OTHER ==
[~2018-08-16] MED LIST changes: -CLON-304 PO; +CLON-333 PO
--- NOTE | 2018-08-16 15:09 | RADIOLOGY IMAGING REPORT ---
FACILITY: [facility] [place] PATIENT NAME: Miguel Moore : 1985 MR: [id number] V: [id number] EXAM DATE: ORDERING PHYSICIAN: CLAUDIO JANG TECHNOLOGIST: Location: [facility] Patient: Miguel Moore : 1985 Visit/Account:[id number] Date of Sevice: 08/16/2018 PELVIC HISTORY: Pelvic pain, TECHNIQUE: Transvaginal and transabdominal ultrasound pelvis. COMPARISON: CT abdomen and pelvis June 06, 2018 FINDINGS: Uterus: Retroverted; 7.1 cm length x 3.1 cm AP x 5.1 cm transverse. Myometrium: Unremarkable. Endometrium: There is a 1.2 x 0.3 x 0.8 cm echogenic nodule within the endometrium; double thickness 12.6 mm. Cervix: Grossly negative. Ovaries: Right - 2.5 x 1 x 1 cm and contains multiple small follicles Left - 2.7 x 1.3 x 1.5 cm and contains multiple small follicles Blood flow is documented in each ovary by duplex Doppler ultrasound. Adnexa: Grossly unremarkable. Free pelvic fluid: None. IMPRESSION: There is a 1.2 x 0.3 x 0.8 cm echogenic nodule within the endometrium. This may represent a polyp, f ibroid or other endometrial mass Report Dictated By: Christy López MD at 08/16/2018 3:01 PM Report E-Signed By: Christy López MD at 08/16/2018 3:04 PM WSN:[email or web address]
== END ==
LOC: US 08-03 00:23
PROVIDERS: ATTEND Surgery
DX: D26.1 Other benign neoplasm of corpus uteri (principal)
CPT/HCPCS: 76856

== ENCOUNTER → 2018-08-26 | Outpatient (CLI) | payer OTHER | LOC: AMB 09:18 | PROVIDERS: ATTEND Nurse Practitioner | DX: M25.572 Pain in left ankle and joints of left foot (principal) | CPT/HCPCS: A0425; A0427 ==

== ENCOUNTER 2018-09-08 14:03 | Emergency (ER) | payer OTHER ==
[2018-09-08] MEDS ORDERED: MORPHINE 4 MG/ML SDV IVP ONE (15:50)
[2018-09-08 17:06] LABS: PLATELET COUNT, AUTOMATED 285 K/uL (150-450)
[2018-09-08] MEDS ORDERED: KETOROLAC 15 MG/ML VIAL IVP ONE (18:00)
--- NOTE | 2018-09-08 18:07 | ER Report ---
History and Physical Time Seen By MD: 14:20 Hx. 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 Pain has been constant, 7/10, rlq/r pelvic, radiates suprapubic and left, no prior episodes. Has hx of tubal ligation. Was seen yest by district claims manager and has known uterine polyp. No other symptoms after district claims manager visit. C/o nausea, no vomiting, fevers, back pain, cp, sob. Pt is not sexually active and has not been x 6 yrs. No menses; wears neuvo ring. REVIEW OF SYSTEMS: Constitutional: No fever, no chills. Eyes: No discharge. ENT: No sore throat. Cardiovascular: No chest pain, no palpitations. Respiratory: No cough, no shortness of breath. Gastrointestinal: above Genitourinary: no dysuria, hematuria Musculoskeletal: No back pain. Skin: No rashes. Neurological: moderate varela after abd pain began. Remainder of the 14 system rev: Yes (IVETTE MARSH MD) Allergies: Coded Allergies: doxycycline (Verified Allergy, Severe, itchy/hives, 09/08/18) lamotrigine (Verified Adverse Reaction, Severe, itchy/hives, 09/08/18) naproxen (Verified Adverse Reaction, Severe, migraines, 09/08/18) Uncoded Allergies: ORANGES (Adverse Reaction, Unknown, 10/25/17) SEAFOOD (Adverse Reaction, Unknown, 10/25/17) Home Meds Active Scripts Ketorolac Tromethamine (KETOROLAC TROMETHAMINE) 10 Mg Tab, 10 MG PO Q6H PRN for PAIN, #12 TAB 0 Refills Prov:ZOHAIB ALVAREZ MD 08/26/18 Reported Medications Ranitidine Hcl (ZANTAC) 150 Mg Tablet, 300 MG PO BID, TAB 05/20/18 Propranolol Hcl (PROPRANOLOL HCL) 80 Mg Capcr, 80 MG PO BID 05/20/18 Cyclobenzaprine Hcl (CYCLOBENZAPRINE HCL) 10 Mg Tablet, 10 MG PO TID, #9 TAB 05/20/18 Amitriptyline Hcl (AMITRIPTYLINE HCL) 50 Mg Tablet, 50 MG PO QHS, #5 TAB 05/20/18 Topiramate (TOPIRAMATE) 50 Mg Tablet, 50 MG PO BID 10/11/17 Pravastatin Sodium (PRAVACHOL) 20 Mg Tablet, 40 MG PO QDAY, TAB 10/11/17 Paroxetine Hcl (PAXIL) 20 Mg Tablet, 40 MG PO QDAY, TAB 10/11/17 Clonazepam (CLONAZEPAM) 1 Mg Tablet, 1 MG PO BID, #6 TAB 10/11/17 Albuterol Sulfate 90 Mcg/Act (PROAIR HFA 90 MCG/ACT) 8.5 Gm Hfa.aer.ad, 1-2 PUFF IH 3-4XD, INHALER 10/11/17 Hx Smoking: Yes Smoking Status: Current: Every Day Smoker Exposure to Second Hand Smoke?: Yes Hx Substance Use Disorder: No Hx Alcohol Use: No (IVETTE MARSH MD) Constitutional Vital Sign - Last 24 Hours 09/08/18 09/08/18 09/08/18 09/08/18 14:33 14:39 14:39 15:00 Temp 98.8 Pulse 82 84 Resp 14 B/P (MAP) 128/74 (92) 128/74 116/76 (89) Pulse Ox 93 95 O2 Delivery Room Air 09/08/18 09/08/18 09/08/18 09/08/18 15:03 15:30 15:33 15:38 Pulse 80 78 79 B/P (MAP) 117/52 (73) Pulse Ox 95 93 95 09/08/18 09/08/18 09/08/18 09/08/18 16:00 16:08 16:38 16:43 Pulse 77 77 79 B/P (MAP) 106/56 (73) 128/75 (92) Pulse Ox 97 94 95 09/08/18 09/08/18 09/08/18 09/08/18 17:00 17:13 17:48 17:53 Pulse 78 80 79 B/P (MAP) 112/54 (73) Pulse Ox 93 93 94 09/08/18 09/08/18 09/08/18 09/08/18 18:00 18:23 18:30 18:53 Pulse ??? 80 B/P (MAP) 111/69 (83) ???/??? (1665) Pulse Ox 95 09/08/18 09/08/18 09/08/18 19:00 19:23 19:30 Pulse 81 B/P (MAP) 134/54 (80) 97/47 (64) Pulse Ox 95 (CORDELL CISNEROS DO) Physical Exam General Appearance: The patient is alert, has no immediate need for airway protection and no signs of toxicity. [ ] Eyes: Pupils equal and round no pallor or injection. ENT, Mouth: Mucous membranes are moist. Respiratory: There are no retractions, lungs are clear to auscultation. Cardiovascular: Regular rate and rhythm. Gastrointestinal: R adnex ttp > RLQ ttp. No peritoneal sgs. Neurological: alert, moves all ext Skin: Warm and dry, no rashes. Musculoskeletal: Extremities are nontender, nonswollen and have full range of motion. DIFFERENTIAL DIAGNOSIS: After history and physical exam differential diagnosis was considered for abdominal pain including but not limited to appendicitis, cholecystitis, kidney stone, gastritis and urinary tract infection, ovarian cyst, torsion, or other emergent etiology (IVETTE MARSH MD) Medical Decision Making Data Points Result Diagram: 09/08/18 1655 09/08/18 1623 Laboratory Hematology Test 09/08/18 16:23 09/08/18 16:55 09/08/18 18:25 Prothrombin Time 13.2 seconds (12.0-14.4) Prothromb Time International Ratio 1.00 Activated Partial Thromboplast Time 31 seconds (23-35) Sodium Level 138 mmol/L (137-145) Potassium Level 4.1 mmol/L (3.5-5.0) Chloride Level 113 mmol/L (98-107) Carbon Dioxide Level 17 mmol/L (22-31) Blood Urea Nitrogen 14 mg/dl (7-18) Creatinine 0.90 mg/dl (0.52-1.04) Glomerular Filtration Rate Calc > 60.0 Random Glucose 75 mg/dl (75-110) Calcium Level 9.5 mg/dl (8.4-10.2) Total Bilirubin 0.3 mg/dl (0.2-1.3) Aspartate Amino Transf (AST/SGOT) 35 U/L (0-35) Alanine Aminotransferase (ALT/SGPT) 33 U/L (0-56) Alkaline Phosphatase 103 U/L (0-126) Total Protein 7.2 g/dl (6.3-8.2) Albumin 4.2 g/dl (3.5-5.0) Human Chorionic Gonadotropin, Qual Negative (NEGATIVE) Red Blood Count 4.54 M/uL (4.17-5.56) Mean Corpuscular Volume 93.2 fL (80.0-96.0) Mean Corpuscular Hemoglobin 30.9 pg (26.0-33.0) Mean Corpuscular Hemoglobin Concent 33.1 g/dL (32.0-36.0) Red Cell Distribution Width 13.6 % (11.5-14.5) Mean Platelet Volume 8.9 fL (7.2-11.1) Neutrophils (%) (Auto) 45.8 % (39.4-72.5) Lymphocytes (%) (Auto) 42.0 % (17.6-49.6) Monocytes (%) (Auto) 6.9 % (4.1-12.4) Eosinophils (%) (Auto) 2.7 % (0.4-6.7) Basophils (%) (Auto) 2.6 % (0.3-1.4) Nucleated RBC Relative Count (auto) 0.0 /100WBC Neutrophils # (Auto) 6.1 K/uL (2.0-7.4) Lymphocytes # (Auto) 5.6 K/uL (1.3-3.6) Monocytes # (Auto) 0.9 K/uL (0.3-1.0) Eosinophils # (Auto) 0.4 K/uL (0.0-0.5) Basophils # (Auto) 0.3 K/uL (0.0-0.1) Nucleated RBC Absolute Count (auto) 0.00 K/uL Urine Color Straw Urine Clarity Clear Urine pH 5.0 pH (4.8-9.5) Urine Specific Blakeslee 1.006 Urine Protein Negative mg/dL (NEGATIVE) Urine Glucose (UA) Negative mg/dL (NEGATIVE) Urine Ketones Negative mg/dL (NEGATIVE) Urine Blood Negative (NEGATIVE) Urine Nitrite Negative (NEGATIVE) Urine Bilirubin Negative (NEGATIVE) Urine Urobilinogen Negative mg/dL (0.2-1.9) Urine Leukocyte Esterase Negative (NEGATIVE) Urine RBC <1 /HPF (0-2/HPF) Urine WBC 1 /HPF (0-5/HPF) Urine Squamous Epithelial Cells Few /LPF (</=FEW) Urine Bacteria Negative /HPF (NONE-FEW) Urine Mucus None /HPF (NONE-FEW) Chemistry Test 09/08/18 16:23 09/08/18 16:55 09/08/18 18:25 Prothrombin Time 13.2 seconds (12.0-14.4) Prothromb Time International Ratio 1.00 Activated Partial Thromboplast Time 31 seconds (23-35) Glomerular Filtration Rate Calc > 60.0 Calcium Level 9.5 mg/dl (8.4-10.2) Total Bilirubin 0.3 mg/dl (0.2-1.3) Aspartate Amino Transf (AST/SGOT) 35 U/L (0-35) Alanine Aminotransferase (ALT/SGPT) 33 U/L (0-56) Alkaline Phosphatase 103 U/L (0-126) Total Protein 7.2 g/dl (6.3-8.2) Albumin 4.2 g/dl (3.5-5.0) Human Chorionic Gonadotropin, Qual Negative (NEGATIVE) White Blood Count 13.2 k/uL (4.5-11.0) Red Blood Count 4.54 M/uL (4.17-5.56) Hemoglobin 14.0 g/dL (12.0-16.0) Hematocrit 42.3 % (34.0-47.0) Mean Corpuscular Volume 93.2 fL (80.0-96.0) Mean Corpuscular Hemoglobin 30.9 pg (26.0-33.0) Mean Corpuscular Hemoglobin Concent 33.1 g/dL (32.0-36.0) Red Cell Distribution Width 13.6 % (11.5-14.5) Platelet Count 285 K/uL (150-450) Mean Platelet Volume 8.9 fL (7.2-11.1) Neutrophils (%) (Auto) 45.8 % (39.4-72.5) Lymphocytes (%) (Auto) 42.0 % (17.6-49.6) Monocytes (%) (Auto) 6.9 % (4.1-12.4) Eosinophils (%) (Auto) 2.7 % (0.4-6.7) Basophils (%) (Auto) 2.6 % (0.3-1.4) Nucleated RBC Relative Count (auto) 0.0 /100WBC Neutrophils # (Auto) 6.1 K/uL (2.0-7.4) Lymphocytes # (Auto) 5.6 K/uL (1.3-3.6) Monocytes # (Auto) 0.9 K/uL (0.3-1.0) Eosinophils # (Auto) 0.4 K/uL (0.0-0.5) Basophils # (Auto) 0.3 K/uL (0.0-0.1) Nucleated RBC Absolute Count (auto) 0.00 K/uL Urine Color Straw Urine Clarity Clear Urine pH 5.0 pH (4.8-9.5) Urine Specific Blakeslee 1.006 Urine Protein Negative mg/dL (NEGATIVE) Urine Glucose (UA) Negative mg/dL (NEGATIVE) Urine Ketones Negative mg/dL (NEGATIVE) Urine Blood Negative (NEGATIVE) Urine Nitrite Negative (NEGATIVE) Urine Bilirubin Negative (NEGATIVE) Urine Urobilinogen Negative mg/dL (0.2-1.9) Urine Leukocyte Esterase Negative (NEGATIVE) Urine RBC <1 /HPF (0-2/HPF) Urine WBC 1 /HPF (0-5/HPF) Urine Squamous Epithelial Cells Few /LPF (</=FEW) Urine Bacteria Negative /HPF (NONE-FEW) Urine Mucus None /HPF (NONE-FEW) Coagulation Test 09/08/18 16:23 Prothrombin Time 13.2 seconds Prothromb Time International Ratio 1.00 Activated Partial Thromboplast Time 31 seconds Urinalysis Test 09/08/18 18:25 Urine Color Straw Urine Clarity Clear Urine pH 5.0 pH (4.8-9.5) Urine Specific Blakeslee 1.006 Urine Protein Negative mg/dL (NEGATIVE) Urine Glucose (UA) Negative mg/dL (NEGATIVE) Urine Ketones Negative mg/dL (NEGATIVE) Urine Blood Negative (NEGATIVE) Urine Nitrite Negative (NEGATIVE) Urine Bilirubin Negative (NEGATIVE) Urine Urobilinogen Negative mg/dL (0.2-1.9) Urine Leukocyte Esterase Negative (NEGATIVE) Urine RBC <1 /HPF (0-2/HPF) Urine WBC 1 /HPF (0-5/HPF) Urine Squamous Epithelial Cells Few /LPF (</=FEW) Urine Bacteria Negative /HPF (NONE-FEW) Urine Mucus None /HPF (NONE-FEW) (CORDELL CISNEROS DO) EKG/Imaging Imaging Results: CT scan of the abdomen and pelvis with IV contrast was obtained. The results of the study are COMPUTED TOMOGRAPHY OF THE Abdomen and Pelvis with CONTRAST INDICATION: Right lower quadrant tenderness to palpation.. TECHNIQUE: Contiguous axial 3.[address] images were obtained through the abdomen and pelvis after 75 cc Isovue-370. Coronal and sagittal reformatted images were submitted. COMPARISON: CT abdomen June 06, 2018. FINDINGS: Lung bases: Mild atelectasis at the lung bases. Liver and hepatic vasculature: Hypodensity adjacent to the falciform is likely fatty infiltration. The liver is diffusely hypoattenuating. The hepatic and portal veins are well opacified. There are a few areas of fatty sparing. Gallbladder and bile ducts: Normal Spleen: Normal Pancreas: Normal Adrenals: Normal Kidneys, ureters and bladder: Symmetric renal enhancement. No stone or obstruction. Incompletely filled bladder. Retroperitoneum and aorta: Unremarkable GI tract, mesentery and peritoneum: Normal appendix. No bowel obstruction. No free fluid or free air. No findings of diverticulitis. Uterus and adnexa: A pessary or diaphragm appears to be in place. The uterus is grossly unremarkable. Bones and soft tissues: No acute osseous abnormality. IMPRESSION: 1. Normal appendix. 2. Hepatic steatosis. 3. No clear evidence of acute intra-abdominal abnormality. The study was read by the radiologist. I viewed the images myself on the PACS system. (CORDELL CISNEROS DO) ED Course/Re-evaluation ED Course Pt presents with r adnexal ttp; she defers pelvic exam as she just had one yesterday. Initially symptoms appear to be more pelvic than abd, however US unremarkable. Upon reassessment, pt with continued pain; rpt exam shows mcburney's ttp at this point. Therefore, will CT. UA and CT to r/o appendicitis pending at time of t/o to Dr. Cisneros. Pain improved after toradol at 1800 Decision to Disposition Date: Sep 08, 2018 Decision to Disposition Time: 18:22 (IVETTE MARSH MD) ED Course Care was assumed at shift change from Dr. Ivette Marsh. Patient with lower abdominal pain in the right lower quadrant. The urinalysis had not yet been obtained. A CT scan of the abdomen and pelvis been ordered to rule out appen dicitis. Patient had undergone an ultrasound of her pelvis that was unremarkable. Patient's CT returned unremarkable. Urinalysis was unremarkable. Patient was medicated with Toradol at shift change and her pain was improved. Patient was advised a clear liquid diet and Tylenol and ibuprofen for pain relief. She is advised to follow-up with primary care if unimproved in 3-5 days. Decision to Disposition Date: Sep 08, 2018 Decision to Disposition Time: 19:45 (CORDELL CISNEROS DO) Depart Departure Latest Vital Signs Vital Signs Date Time Temp Pulse Resp B/P (MAP) Pulse Ox O2 Delivery O2 Flow Rate FiO2 09/08/18 19:30 97/47 (64) 09/08/18 19:23 81 95 09/08/18 14:39 98.8 14 Room Air (CORDELL CISNEROS DO) Impression: Primary Impression: Abdominal pain Condition: Improved Disposition: HOME OR SELF-CARE Referrals: LUCA GODFREY SAMEERA F MD JAVAID, FARRUKH MD Patient Instructions: Abdominal Pain (ED), Clear Liquid Diet (ED) Additional Instructions: Follow clear liquid diet for 24-48 hours and advance to Miah diet, bananas, rice, applesauce and toast Use Tylenol and ibuprofen as needed for pain relief Follow-up with primary care if unimproved in 3-5 days Problem Qualifiers Primary Impression: Abdominal pain Abdominal location: right lower quadrant Qualified Codes: R10.31 - Right lower quadrant pain IVETTE MARSH MD Sep 08, 2018 18:07 CORDELL CISNREOS DO Sep 08, 2018 19:48
--- NOTE | 2018-09-08 18:23 | RADIOLOGY IMAGING REPORT ---
FACILITY: [facility] PATIENT NAME: Miguel Moore : 1985 MR: [id number] V: [id number] EXAM DATE: ORDERING PHYSICIAN: IVETTE MARSH TECHNOLOGIST: Location: [facility] Patient: Miguel Moore : 1985 Visit/Account:[id number] Date of Sevice: 09/08/2018 Transvaginal pelvic ultrasound INDICATION: Right pelvic pain. COMPARISON: 08/14/2018. FINDINGS: Uterus measures 6.0 x 2.8 x 4.6 cm. The uterus is retroflexed and heterogeneous without focal abnorm ality. Double wall endometrial stripe measures 2.9 mm and heterogeneous. The central portion does show a ec hogenic foci measuring 9 x 6 x 2 mm with some blood flow consistent with a polyp. This was seen prev iously. No other focal abnormality or fluid. A Nuva ring is seen near the cervix on ultrasound. There is no free fluid in the cul-de-sac. Urinary bladder is empty. Pelvic vessels appear unremarkable on this examination. Right ovary measures 2.7 x 1.7 x 1.6 cm and shows normal blood flow and contains several small follic les. Left ovary measures 2.2 x 1.4 x 2.6 cm and shows normal blood flow and contains several small follicl es. No adnexal masses. IMPRESSION: 1. No acute abnormality. 2. The endometrium again shows a polyp which is seen previously. No other focal abnormality. Report Dictated By: Nick Escalera at 09/08/2018 6:16 PM Report E-Signed By: Nick Escalera at 09/08/2018 6:19 PM WSN:[id number]
[2018-09-08] MEDS ORDERED: IOPAMIDOL 76% 75 ML INFUS BTL 75 ML ONE (18:33)
[2018-09-08 19:30] VITALS: BP 97/47
--- NOTE | 2018-09-08 19:33 | RADIOLOGY IMAGING REPORT ---
FACILITY: [facility] [place] PATIENT NAME: Miguel Moore : 1985 MR: [id number] V: [id number] EXAM DATE: ORDERING PHYSICIAN: IVETTE MARSH TECHNOLOGIST: [place] [facility] [place] Moore : 1985 Visit/Account:[id number] Date of Sevice: 09/08/2018 COMPUTED TOMOGRAPHY OF THE Abdomen and Pelvis with CONTRAST INDICATION: Right lower quadrant tenderness to palpation.. TECHNIQUE: Contiguous axial 3.[address] images were obtained through the abdomen and pelvis after 75 c c Isovue-370. Coronal and sagittal reformatted images were submitted. COMPARISON: CT abdomen June 06, 2018. FINDINGS: Lung bases: Mild atelectasis at the lung bases. Liver and hepatic vasculature: Hypodensity adjacent to the falciform is likely fatty infiltration. T he liver is diffusely hypoattenuating. The hepatic and portal veins are well opacified. There are a f ew areas of fatty sparing. Gallbladder and bile ducts: Normal Spleen: Normal Pancreas: Normal Adrenals: Normal Kidneys, ureters and bladder: Symmetric renal enhancement. No stone or obstruction. Incompletely esmer led bladder. Retroperitoneum and aorta: Unremarkable GI tract, mesentery and peritoneum: Normal appendix. No bowel obstruction. No free fluid or free air. No findings of diverticulitis. Uterus and adnexa: A pessary or diaphragm appears to be in place. The uterus is grossly unremarkable. Bones and soft tissues: No acute osseous abnormality. IMPRESSION: 1. Normal appendix. 2. Hepatic steatosis. 3. No clear evidence of acute intra-abdominal abnormality. One of the following dose optimization techniques was utilized in the performance of this exam: Autom ated exposure control; adjustment of the mA and/or kV according to the patient's size; or use of an i terative reconstruction technique. Specific details can be referenced in the facility's radiology C T exam operational policy. Report Dictated By: Tianna Rivera MD at 09/08/2018 7:20 PM Report E-Signed By: Tianna Rivera MD at 09/08/2018 7:28 PM WSN:[id number]
== END 2018-09-08 19:58 | disposition home or self-care (01) ==
LOC: ER 14:38
DX: R10.31 Right lower quadrant pain (principal)
CPT/HCPCS: 74177; 76830; 81001; 84703; 85025; 85610; 85730; 86850; 86900; 86901; 96374; 96375; 99284; J1885; J2270; Q9967; 82040; 82247; 82310; 82374; 82435; 82565; 82947; 84075; 84132; 84155; 84295; 84450; 84460; 84520

== ENCOUNTER 2018-10-17 16:29 | Emergency (ER) | payer OTHER ==
[2018-10-17 16:57] VITALS: BP 129/80
--- NOTE | 2018-10-17 17:00 | ER Report ---
History and Physical Time Seen By MD: 17:00 HPI/ROS CHIEF COMPLAINT: Blood in stool HISTORY OF PRESENT ILLNESS: 33-year-old female patient presents to emergency room with complaint of blood in her stool. Patient states that this been going on for the last 3 days. Patient states she's also been having significant amounts of pain when sitting. She denies having any fevers or chills. She denies any nausea, vomiting. She states she has had some diarrhea. She states she's noticed blood in her diarrhea. Patient states that every time she sits down or has a bowel movement she has pain. She's also noticed blood whenever she urinates. Patient states she is not taking any medication for this. She states she did have a normal colonoscopy at the end of September. REVIEW OF SYSTEMS: Respiratory: No cough, no dyspnea. Cardiovascular: No chest pain, no palpitations. Gastrointestinal: As noted above Musculoskeletal: No back pain. Allergies: Coded Allergies: doxycycline (Verified Allergy, Severe, itchy/hives, 10/17/18) lamotrigine (Verified Adverse Reaction, Severe, itchy/hives, 10/17/18) naproxen (Verified Adverse Reaction, Severe, migraines, 10/17/18) Uncoded Allergies: ORANGES (Adverse Reaction, Unknown, 10/25/17) SEAFOOD (Adverse Reaction, Unknown, 10/25/17) Home Meds Active Scripts Sucralfate (CARAFATE) 1 Gm Tablet, 1 GM PO QID, #60 TAB Take before meals and at bedtime. Crush the tablet and mix with water before taking. Prov:ANTONETTE MENEZES 10/17/18 Omeprazole (OMEPRAZOLE) 40 Mg Capsule.dr, 40 MG PO QDAY, #30 CAP Prov:ANTONETTE MENEZES 10/17/18 Hydrocortisone Acetate (CORTIFOAM) 15 Gm Foam.appl, 1 CHRIS RC DAILY for 7 Days, #1 BOTTLE Prov:ANTONETTE MENEZES 10/17/18 Ketorolac Tromethamine (KETOROLAC TROMETHAMINE) 10 Mg Tab, 10 MG PO Q6H PRN for PAIN, #12 TAB 0 Refills Prov:ZOHAIB ALVAREZ MD 08/26/18 Reported Medications Topiramate (TOPIRAMATE) 50 Mg Tablet, 200 MG PO QHS 09/14/18 Topiramate (TOPIRAMATE) 50 Mg Tablet, 50 MG PO QAM 09/14/18 Ranitidine Hcl (ZANTAC) 150 Mg Tablet, 300 MG PO BID, TAB 05/20/18 Propranolol Hcl (PROPRANOLOL HCL) 80 Mg Capcr, 80 MG PO BID 05/20/18 Cyclobenzaprine Hcl (CYCLOBENZAPRINE HCL) 10 Mg Tablet, 10 MG PO TID, #9 TAB 05/20/18 Amitriptyline Hcl (AMITRIPTYLINE HCL) 50 Mg Tablet, 50 MG PO QHS, #5 TAB 05/20/18 Pravastatin Sodium (PRAVACHOL) 20 Mg Tablet, 40 MG PO QDAY, TAB 10/11/17 Paroxetine Hcl (PAXIL) 20 Mg Tablet, 40 MG PO QDAY, TAB 10/11/17 Clonazepam (CLONAZEPAM) 1 Mg Tablet, 1 MG PO BID, #6 TAB 10/11/17 Albuterol Sulfate 90 Mcg/Act (PROAIR HFA 90 MCG/ACT) 8.5 Gm Hfa.aer.ad, 1-2 PUFF IH 3-4XD, INHALER 10/11/17 Past Medical/Surgical History Patient has a past medical history of seizures, migraines, hyperlipidemia, reactive airway, uterine polyps, fractured toes, fractured elbow, PTSD, depr ession. Patient has a surgical history of tubal ligation, thumb surgery, bursa removed, dental surgery. Patient has a family medical history of stroke, diabetes. Reviewed Nurses Notes: Yes Hx Smoking: Yes Smoking Status: Current: Every Day Smoker Exposure to Second Hand Smoke?: Yes Hx Substance Use Disorder: No Hx Alcohol Use: No Constitutional Vital Sign - Last 24 Hours 10/17/18 10/17/18 10/17/18 10/17/18 16:55 16:57 16:59 17:04 Temp 97.7 Pulse 111 103 99 B/P (MAP) 129/80 129/80 (96) Pulse Ox 94 97 96 O2 Delivery Room Air 10/17/18 10/17/18 10/17/18 10/17/18 17:09 17:14 17:19 17:24 Pulse 99 96 95 92 Pulse Ox 92 94 96 95 10/17/18 10/17/18 10/17/18 10/17/18 17:29 17:34 17:39 17:44 Pulse 93 92 89 90 Pulse Ox 95 96 96 94 10/17/18 10/17/18 10/17/18 10/17/18 17:49 17:54 17:59 18:04 Pulse 88 90 87 89 Pulse Ox 96 96 96 96 10/17/18 10/17/18 10/17/18 10/17/18 18:09 18:14 18:19 18:24 Pulse 93 88 88 87 Pulse Ox 96 95 95 96 Physical Exam General Appearance: The patient is alert, has no immediate need for airway protection and no current signs of toxicity. Respiratory: Chest is non tender, lungs are clear to auscultation. Cardiac: regular rate and rhythm Gastrointestinal: Abdomen is soft and non tender, no masses, bowel sounds normal. Rectal exam was done with bottom turner, no obvious blood noted, however the patient did have significant amounts of discomfort. Musculoskeletal: Neck: Neck is supple and non tender. Extremities have full range of motion and are non tender. Skin: No rashes or lesions. DIFFERENTIAL DIAGNOSIS: After history and physical exam differential diagnosis was considered for hemorrhoids, GI bleed, ulcer. Medical Decision Making Data Points Result Diagram: 10/17/18 1739 10/17/18 1739 Laboratory Hematology Test 10/17/18 17:11 10/17/18 17:39 Stool Occult Blood (IFOB) Positive (NEGATIVE) Red Blood Count 4.50 M/uL (4.17-5.56) Mean Corpuscular Volume 92.8 fL (80.0-96.0) Mean Corpuscular Hemoglobin 30.9 pg (26.0-33.0) Mean Corpuscular Hemoglobin Concent 33.3 g/dL (32.0-36.0) Red Cell Distribution Width 13.2 % (11.5-14.5) Mean Platelet Volume 8.9 fL (7.2-11.1) Neutrophils (%) (Auto) 57.7 % (39.4-72.5) Lymphocytes (%) (Auto) 34.7 % (17.6-49.6) Monocytes (%) (Auto) 4.6 % (4.1-12.4) Eosinophils (%) (Auto) 2.1 % (0.4-6.7) Basophils (%) (Auto) 0.9 % (0.3-1.4) Nucleated RBC Relative Count (auto) 0.0 /100WBC Neutrophils # (Auto) 8.2 K/uL (2.0-7.4) Lymphocytes # (Auto) 4.9 K/uL (1.3-3.6) Monocytes # (Auto) 0.6 K/uL (0.3-1.0) Eosinophils # (Auto) 0.3 K/uL (0.0-0.5) Basophils # (Auto) 0.1 K/uL (0.0-0.1) Nucleated RBC Absolute Count (auto) 0.01 K/uL Sodium Level 137 mmol/L (137-145) Potassium Level 3.4 mmol/L (3.5-5.0) Chloride Level 108 mmol/L (98-107) Carbon Dioxide Level 19 mmol/L (22-31) Blood Urea Nitrogen 13 mg/dl (7-18) Creatinine 1.00 mg/dl (0.52-1.04) Glomerular Filtration Rate Calc > 60.0 Random Glucose 79 mg/dl (75-110) Calcium Level 8.9 mg/dl (8.4-10.2) Total Bilirubin 0.3 mg/dl (0.2-1.3) Aspartate Amino Transf (AST/SGOT) 34 U/L (0-35) Alanine Aminotransferase (ALT/SGPT) 28 U/L (0-56) Alkaline Phosphatase 117 U/L (0-126) Total Protein 7.0 g/dl (6.3-8.2) Albumin 4.2 g/dl (3.5-5.0) Chemistry Test 10/17/18 17:11 10/17/18 17:39 Stool Occult Blood (IFOB) Positive (NEGATIVE) White Blood Count 14.2 k/uL (4.5-11.0) Red Blood Count 4.50 M/uL (4.17-5.56) Hemoglobin 13.9 g/dL (12.0-16.0) Hematocrit 41.8 % (34.0-47.0) Mean Corpuscular Volume 92.8 fL (80.0-96.0) Mean Corpuscular Hemoglobin 30.9 pg (26.0-33.0) Mean Corpuscular Hemoglobin Concent 33.3 g/dL (32.0-36.0) Red Cell Distribution Width 13.2 % (11.5-14.5) Platelet Count 280 K/uL (150-450) Mean Platelet Volume 8.9 fL (7.2-11.1) Neutrophils (%) (Auto) 57.7 % (39.4-72.5) Lymphocytes (%) (Auto) 34.7 % (17.6-49.6) Monocytes (%) (Auto) 4.6 % (4.1-12.4) Eosinophils (%) (Auto) 2.1 % (0.4-6.7) Basophils (%) (Auto) 0.9 % (0.3-1.4) Nucleated RBC Relative Count (auto) 0.0 /100WBC Neutrophils # (Auto) 8.2 K/uL (2.0-7.4) Lymphocytes # (Auto) 4.9 K/uL (1.3-3.6) Monocytes # (Auto) 0.6 K/uL (0.3-1.0) Eosinophils # (Auto) 0.3 K/uL (0.0-0.5) Basophils # (Auto) 0.1 K/uL (0.0-0.1) Nucleated RBC Absolute Count (auto) 0.01 K/uL Glomerular Filtration Rate Calc > 60.0 Calcium Level 8.9 mg/dl (8.4-10.2) Total Bilirubin 0.3 mg/dl (0.2-1.3) Aspartate Amino Transf (AST/SGOT) 34 U/L (0-35) Alanine Aminotransferase (ALT/SGPT) 28 U/L (0-56) Alkaline Phosphatase 117 U/L (0-126) Total Protein 7.0 g/dl (6.3-8.2) Albumin 4.2 g/dl (3.5-5.0) ED Course/Re-evaluation ED Course Patient was admitted and examined, history and physical were obtained. Differential diagnoses were considered. On examination lungs are clear, heart is regular, abdomen is soft and nontender. A rectal exam was done with bottom turner, no obvious blood noted. A stool sample was sent down which was positive for blood. Patient did have significant amounts of discomfort with rectal exam. A CBC, CMP were done. The labs were unremarkable. Patient had an IV started a liter of normal saline was given. With patient having a negative colonoscopy sore recently as well as unremarkable labs is mildly the patient likely has a internal hemorrhoid which is bleeding. We will go ahead and treat her with Cortifoam daily for the next week. We will go ahead and place her on omeprazole and Carafate for possible GI bleed. We will also have her follow-up with Dr. Rangel. I would like her just follow up and be evaluated by him I do not believe that she necessarily needs a repeat colonoscopy especially since one was done so recently. Patient and her mother verbalized understanding and agreement with plan. Decision to Disposition Date: Oct 17, 2018 Decision to Disposition Time: 18:27 Depart Departure Latest Vital Signs Vital Signs Date Time Temp Pulse Resp B/P (MAP) Pulse Ox O2 Delivery O2 Flow Rate FiO2 10/17/18 18:24 87 96 10/17/18 16:57 129/80 (96) 10/17/18 16:55 97.7 Room Air Impression: Primary Impression: Bleeding internal hemorrhoids Condition: Improved Disposition: HOME OR SELF-CARE New Scripts Sucralfate (CARAFATE) 1 Gm Tablet 1 GM PO QID, #60 TAB Take before meals and at bedtime. Crush the tablet and mix with water before taking. Prov: ANTONETTE MENEZES 10/17/18 Omeprazole (OMEPRAZOLE) 40 Mg Capsule. 40 MG PO QDAY, #30 CAP Prov: ANTONETTE MENEZES 10/17/18 Hydrocortisone Acetate (CORTIFOAM) 15 Gm Foam.appl 1 CHRIS RC DAILY for 7 Days, #1 BOTTLE Prov: ANTONETTE MENEZES 10/17/18 Patient Instructions: Hemorrhoids (ED) Additional Instructions: Increase fluid intake. Get plenty of rest. Follow up with Dr. Rangel, with the recent colonoscopy being normal I don't expect to see an ulcer. Take the medications as prescribed. Return to the ER if condition worsens. ANTONETTE MENEZES Oct 17, 2018 17:00
[2018-10-17] MEDS ORDERED: NS(*) 0.9% 1000 ML BAG 1,000 ML IV ONE (17:16)
[2018-10-17 17:52] LABS: PLATELET COUNT, AUTOMATED 280 K/uL (150-450)
[2018-10-17] MEDS ORDERED: OMEP40CA48 PO (18:30)
[2018-10-17] MEDS ORDERED: HYDR15FO RC (18:30)
[2018-10-17] MEDS ORDERED: SUCR1TAB85 PO (18:30)
== END 2018-10-17 18:47 | disposition home or self-care (01) ==
LOC: ER 17:16
DX: K64.8 Other hemorrhoids (principal)
CPT/HCPCS: 36415; 82274; 85025; 96360; 99283; J7030; 82040; 82247; 82310; 82374; 82435; 82565; 82947; 84075; 84132; 84155; 84295; 84450; 84460; 84520

== ENCOUNTER 2019-01-05 08:00 | Outpatient (RCR) | payer MEDICARE, MEDICAID ==
[2018-11-30 14:34] VITALS: BP 115/74
--- NOTE | 2018-12-01 12:24 | ONCOLOGY CONSULTATION ---
EVENT DATE: November 30, 2018 REFERRING PHYSICIAN Alex Rangel MD REASON FOR CONSULTATION Evaluation and management of leukocytosis. HEMATOLOGY HISTORY Patient is a 33-year old female with a past medical history of seizure disorder, migraine, depression and anxiety, PTSD who presented to Dr. Rangel with lower abdominal pain and diarrhea. She had a CT scan which revealed inflammation in her sigmoid colon. During her evaluation, patient was found to have leukocytosis. Her CBC on October 17, 2018 showed white count 14.2, hemoglobin 13.9, hematocrit 41.8 and platelets 280,000. Her ANC was 8.2 and ALC was 4.9. Patient denies any constitutional symptoms except for sweating sometime. PAST MEDICAL HISTORY 1. Seizure disorder. 2. Migraine. 3. Marrow defect. 4. Hypercholesterolemia. 5. Depression. 6. Posttraumatic stress disorder. 7. Anxiety. PAST SURGICAL HISTORY 1. Tubal ligation. 2. Dilatation and curettage. 3. Removal of bursa from the right hip. 4. Removal of benign nodule from the right thumb. FAMILY HISTORY Negative for cancer or blood diseases. SOCIAL HISTORY Patient is single with three sons. She is on disability. She has about 16 years of tobacco abuse. She smokes marijuana sometimes but denies any other illicit drugs or alcohol abuse. CURRENT MEDICATIONS 1. Dicyclomine 20 mg four times daily p.r.n. 2. Omeprazole 40 mg once daily. 3. Etonogestrel/Ethinyl Estradiol vaginal ring. 4. Indomethacin 25 mg as needed. 5. Sertraline 50 mg daily. 6. Zyrtec 10 mg daily. 7. Topiramate 50 mg in the morning and 200 mg at night. 8. Zantac 150 mg twice daily. 9. Propranolol 80 mg twice daily. 10. Flexeril 10 mg three times daily. 11. Amitriptyline 50 mg at bedtime. 12. Paxil 40 mg daily. 13. Clonazepam 1 mg twice daily. 14. Albuterol sulfate 90 mcg one to two puffs three to four times daily. ALLERGIES Lamictal, doxycycline, Naproxen and seafood, which causes respiratory distress. REVIEW OF SYSTEMS CONSTITUTIONAL: Patient has sweating sometimes. HEENT: Ears: No tinnitus or hearing problem. Nose: She has nasal discharge. Throat: No sore throat or mouth ulcers. Eyes: No diplopia or visual changes. RESPIRATORY: She has dry cough. CARDIOVASCULAR: No chest pain, orthopnea, or paroxysmal nocturnal dyspnea (PND). No edema. No palpitations. GASTROINTESTINAL: She has diarrhea and abdominal pain. GENITOURINARY: Patient has had heavy periods for years, and she has been seen by a exterminator helper, and she was offered uterine ablation, but the patient refused the procedure. As per patient, she has had heavy periods for a total of seven days every month. MUSCULOSKELETAL: She has pain in the hips, knees and back. NEUROLOGICAL: She has tingling or numbness in the hands and feet and migraine headache. HEMATOLOGIC/LYMPHATIC: She bruises easily. She is weak, tired and fatigued. SKIN: No skin rash or lumps. PSYCHIATRIC: No anxiety or depression. PHYSICAL EXAMINATION GENERAL: Looks stable. Well-developed, well-nourished, and in no acute distress. VITAL SIGNS: Blood pressure 115/74, pulse 89 per minute, respirations 16 per minute, temperature 98.6, pulse ox 97% on room air. HEENT: Head: Atraumatic. No sinus tenderness to palpation. Eyes: No icterus or conjunctivitis. Mouth and Throat: No oral thrush or mucositis. NECK: Supple. No cervical or supraclavicular lymphadenopathy. LUNGS: Clear to auscultation and percussion bilaterally. HEART: Regular rate and rhythm. No gallops, murmurs, clicks or rubs. ABDOMEN: Soft and lax. No tenderness. No hepatosplenomegaly. No masses. EXTREMITIES: No cyanosis, clubbing or edema. LYMPHATICS: No peripheral lymphadenopathy. NEUROLOGICAL: Conscious, alert and oriented x3. No focal motor or sensory deficits. PSYCHIATRIC: Mood and affect appear normal. SKIN: No skin rash, bruise or purpuric eruption. ASSESSMENT Mucositis with lymphocytosis and neutrophilia, could be reactive in nature but other causes with disease of the bone marrow could be present and for this reason I am planning to check her CBC, flow cytometry of the peripheral blood and LAP score. I am planning also to check the parameters the inflammation including C-reactive protein, erythrocyte sedimentation rate and fibrinogen level. Further evaluation and management will depend on the result of those tests. Patient denies any constitutional symptoms except for occasional sweating. PLAN 1. CBC. 2. C-reactive protein. 3. ESR. 4. Fibrinogen level. 5. LAP score. 6. Flow cytometry of peripheral blood. 7. Patient to contact us for any new concerns or complaints. MTDD
[2018-12-04 11:00] VITALS: BP 123/53
[2018-12-04 11:34] LABS: PLATELET COUNT, AUTOMATED 284 K/uL (150-450)
[~2019-01-05 08:00] MED LIST changes: +CETI10CA8 PO; +HYDR15FO RC; +INDO-21 PO; +OMEP40CA48 PO; -RANI-366 PO; +RANI-54 PO; +SUCR1TAB85 PO; -TRAZ50TA34 PO; +TRAZ50TA52 PO
[2019-01-05 08:15] VITALS: BP 114/72
--- NOTE | 2019-01-05 09:24 | [facility] ONCOLOGY NOTE ---
EVENT DATE: January 05, 2019 DIAGNOSES Leukocytosis with neutrophilia and lymphocytosis. CHIEF COMPLAINT Patient is here today for followup of her leukocytosis. HEMATOLOGY HISTORY Patient is a 33-year old female with a past medical history of seizure disorder, migraine, depression and anxiety, PTSD who presented to Dr. Rangel with lower abdominal pain and diarrhea. She had a CT scan which revealed inflammation in her sigmoid colon. During her evaluation, patient was found to have leukocytosis. Her CBC on October 17, 2018 showed white count 14.2, hemoglobin 13.9, hematocrit 41.8 and platelets 280,000. Her ANC was 8.2 and ALC was 4.9. Patient denies any constitutional symptoms except for sweating sometime. Repeat CBC showed white count 10.9, within the normal range, hemoglobin 13.5, hematocrit 41.1 and platelets 284,000. Her absolute lymphocytic count was mildly elevated at 4.4. C-reactive protein was mildly elevated at 3.2. Fibrinogen level was normal at 386. ESR was mildly elevated at 24. Flow cytometry of the peripheral blood showed no phenotypically abnormalities with no evidence of leukemia or lymphoproliferative disorder. LAP score was normal at 106. HISTORY OF PRESENT ILLNESS Patient is here today for followup of her leukocytosis. She is complaining of occasional diarrhea. She has generalized joint pain. She has also tingling and numbness in her hands sometimes and occasional headache. She is weak, tired and fatigued. Other than that, she is very stable. PAST MEDICAL HISTORY 1. Seizure disorder. 2. Migraine. 3. Marrow defect. 4. Hypercholesterolemia. 5. Depression. 6. Posttraumatic stress disorder. 7. Anxiety. PAST SURGICAL HISTORY 1. Tubal ligation. 2. Dilatation and curettage. 3. Removal of bursa from the right hip. 4. Removal of benign nodule from the right thumb. FAMILY HISTORY Negative for cancer or blood diseases. SOCIAL HISTORY Patient is single with three sons. She is on disability. She has about 16 years of tobacco abuse. She smokes marijuana sometimes but denies any other illicit drugs or alcohol abuse. CURRENT MEDICATIONS 1. Dicyclomine 20 mg four times daily p.r.n. 2. Omeprazole 40 mg once daily. 3. Etonogestrel/Ethinyl Estradiol vaginal ring. 4. Indomethacin 25 mg as needed. 5. Sertraline 50 mg daily. 6. Zyrtec 10 mg daily. 7. Topiramate 50 mg in the morning and 200 mg at night. 8. Zantac 150 mg twice daily. 9. Propranolol 80 mg twice daily. 10. Flexeril 10 mg three times daily. 11. Amitriptyline 50 mg at bedtime. 12. Paxil 40 mg daily. 13. Clonazepam 1 mg twice daily. 14. Albuterol sulfate 90 mcg one to two puffs three to four times daily. ALLERGIES Lamictal, doxycycline, Naproxen and seafood, which causes respiratory distress. REVIEW OF SYSTEMS CONSTITUTIONAL: Patient has sweating sometimes. HEENT: Ears: No tinnitus or hearing problem. Nose: She has nasal discharge. Throat: No sore throat or mouth ulcers. Eyes: No diplopia or visual changes. RESPIRATORY: She has dry cough. CARDIOVASCULAR: No chest pain, orthopnea, or paroxysmal nocturnal dyspnea (PND). No edema. No palpitations. GASTROINTESTINAL: She has occasional diarrhea. GENITOURINARY: Patient has had heavy periods for years, and she has been seen by a sensor specialist, and she was offered uterine ablation, but the patient refused the procedure. As per patient, she has had heavy periods for a total of seven days every month. MUSCULOSKELETAL: She has arthralgias all over her joints. NEUROLOGICAL: She has tingling and numbness in the hands sometimes and occasional headache. HEMATOLOGIC/LYMPHATIC: She is weak, tired and fatigued. SKIN: No skin rash or lumps. PSYCHIATRIC: No anxiety or depression. PHYSICAL EXAMINATION GENERAL: Looks stable. Well-developed, well-nourished, and in no acute distress. VITAL SIGNS: Blood pressure 115/72, pulse 98 per minute, respirations 16 per minute, temperature 97.9, pulse ox 93% on room air. HEENT: Head: Atraumatic. No sinus tenderness to palpation. Eyes: No icterus or conjunctivitis. Mouth and Throat: No oral thrush or mucositis. NECK: Supple. No cervical or supraclavicular lymphadenopathy. LUNGS: Clear to auscultation and percussion bilaterally. HEART: Regular rate and rhythm. No gallops, murmurs, clicks or rubs. ABDOMEN: Soft and lax. No tenderness. No hepatosplenomegaly. No masses. EXTREMITIES: No cyanosis, clubbing or edema. LYMPHATICS: No peripheral lymphadenopathy. NEUROLOGICAL: Conscious, alert and oriented x3. No focal motor or sensory deficits. PSYCHIATRIC: Mood and affect appear normal. SKIN: No skin rash, bruise or purpuric eruption. DIAGNOSTIC DATA CBC showed white count 10.9, hemoglobin 13.5, hematocrit 41.1, platelet 284,000. Absolute lymphocytic count was high at 4.4. Other parameters are normal. C- reactive protein is high at 3.2. ESR is high at 24. Fibrinogen level is normal at 386. LAP score is normal at 106. Flow cytometry of the peripheral blood showed no phenotypically abnormal result of monoclonality. No evidence of leukemia or lymphoproliferative disorder. ASSESSMENT Leukocytosis with lymphocytosis and neutrophilia. It is most probably active in nature given that her repeat CBC showed normal white count at 10.9 but absolute lymphocytic count was mildly elevated at 4.4 but her flow cytometry of the peripheral blood did not show any evidence of lymphoproliferative disorder. Patient had mild elevation of the ESR at 24 and of the C-reactive protein at 3.2 but her fibrinogen level was normal at 386. Her LAP score was normal at 106. As her total white count is normal and her flow cytometry is negative, I am planning to refer the patient back to her primary care for followup and I would be more than happy to see her in the future if she will have any abnormalities in her blood count. PLAN 1. Patient to continue followup by her primary care. 2. Patient to return to the clinic on a p.r.n. basis whenever there is a problem with her blood count. 3. Patient to contact us for any new concerns or complaints. HIRO
== END 2019-02-05 14:46 | disposition home or self-care (01) ==
LOC: ONC 08:00
PROVIDERS: ATTEND Internal Medicine Hematology
DX: K12.30 Oral mucositis (ulcerative), unspecified (principal); D72.820 Lymphocytosis (symptomatic); D72.0 Genetic anomalies of leukocytes; Z79.899 Other long term (current) drug therapy; R05 Cough; R19.7 Diarrhea, unspecified; R10.9 Unspecified abdominal pain; R53.83 Other fatigue; R53.1 Weakness
CPT/HCPCS: 36415; 85025; 85384; 85540; 85651; 86140; 88184; 88185; 88189; G0463; 99202; 99212

== ENCOUNTER 2019-03-04 21:46 | Emergency (ER) | payer MEDICARE, MEDICAID ==
[2019-03-04] MEDS ORDERED: DIPHTH/TETANUS/ACEL. PERTUSSIS IM ONLY ONE (22:00)
[2019-03-04] MEDS ORDERED: LIDOCAINE 1% MDV 200 MG/20 ML INJ ONE (22:05)
[2019-03-04] MEDS ORDERED: cefTRIAXone 1 GM VIAL IM ONE (22:05)
--- NOTE | 2019-03-04 22:25 | RADIOLOGY IMAGING REPORT ---
FACILITY: [facility] PATIENT NAME: Miguel Moore : 1985 MR: [id number] V: [id number] EXAM DATE: ORDERING PHYSICIAN: IVETTE NAGEL TECHNOLOGIST: Location: [facility] Patient: Miguel Moore : 1985 Visit/Account:[id number] Date of Sevice: 03/04/2019 Exam type: 3 views right hand History: attacked by rooster Comparison: None. Findings: There is no acute fracture of the right hand. 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 Carpus aligns appropriately. Soft tissues are unremarkable. IMPRESSION: 1. No acute fracture of the right hand. 2. 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 Report Dictated By: Nick Newberry MD at 03/04/2019 10:17 PM Report E-Signed By: Nick Newberry MD at 03/04/2019 10:19 PM WSN:[id number]
[2019-03-04 22:30] VITALS: BP 142/64
[2019-03-04] MEDS ORDERED: CEPH500T7 PO (22:38)
--- NOTE | 2019-03-04 22:38 | ER Report ---
History and Physical Time Seen By MD: 22:00 Hx. of Stated Complaint: ATTACKED BY ROOSTER. RIGHT HAND PAIN/ SWELLING, SMALL SCRATCH TO PALM AND TOP OF HAND HPI/ROS CHIEF COMPLAINT: Attacked by a rooster HISTORY OF PRESENT ILLNESS: Patient is a 33-year-old female who states that she was attacked by a rooster [place]. She states she received scratches to the dorsum and volar aspect of her right hand. This occurred around 10:30 this morning however she noticed some increased pain and swelling as the day went on and for this reason she came to the emergency department for evaluation. She is unsure of her last tetanus shot. Allergies: Coded Allergies: doxycycline (Verified Allergy, Severe, itchy/hives, 10/17/18) lamotrigine (Verified Adverse Reaction, Severe, itchy/hives, 10/17/18) naproxen (Verified Adverse Reaction, Severe, migraines, 10/17/18) Uncoded Allergies: ORANGES (Adverse Reaction, Unknown, 10/25/17) SEAFOOD (Adverse Reaction, Unknown, 10/25/17) Home Meds Active Scripts Cephalexin 500 Mg Tab (KEFLEX 500 MG TAB) 500 Mg Tablet, 500 MG PO Q6H, #28 TAB 0 Refills TAKE ONE TABLET BY MOUTH EVERY SIX HOURS Prov:IVETTE NAGEL MD 03/04/19 Dicyclomine Hcl (DICYCLOMINE HCL) 20 Mg Tablet, 1 TAB PO QID, #120 TAB 6 Refills Prov:CLAUDIO JANG MD 11/07/18 Omeprazole (OMEPRAZOLE) 40 Mg Capsule.dr, 40 MG PO QDAY, #30 CAP Prov:[facility] 10/17/18 Reported Medications Etonogestrel/Ethinyl Estradiol (NUVARING VAGINAL RING) 1 Each Vag.ring, 1 EACH VG PRN, VAG.RING 11/30/18 Indomethacin (INDOMETHACIN) 25 Mg Capsule, 25 MG PO PRN, CAPSULE 11/30/18 Sertraline Hcl (SERTRALINE HCL) 50 Mg Tablet, 1 TAB PO QDAY, TAB 11/30/18 Cetirizine Hcl (ZYRTEC) 10 Mg Capsule, 10 MG PO QDAY, CAPSULE 11/30/18 Topiramate (TOPIRAMATE) 50 Mg Tablet, 200 MG PO QHS 09/14/18 Topiramate (TOPIRAMATE) 50 Mg Tablet, 50 MG PO QAM 09/14/18 Ranitidine Hcl (ZANTAC) 150 Mg Tablet, 300 MG PO BID, TAB 05/20/18 Propranolol Hcl (PROPRANOLOL HCL) 80 Mg Capcr, 80 MG PO BID 05/20/18 Cyclobenzaprine Hcl (CYCLOBENZAPRINE HCL) 10 Mg Tablet, 10 MG PO TID, #9 TAB 05/20/18 Amitriptyline Hcl (AMITRIPTYLINE HCL) 50 Mg Tablet, 50 MG PO QHS, #5 TAB 05/20/18 Paroxetine Hcl (PAXIL) 20 Mg Tablet, 40 MG PO QDAY, TAB 10/11/17 Clonazepam (CLONAZEPAM) 1 Mg Tablet, 1 MG PO BID, #6 TAB 10/11/17 Albuterol Sulfate 90 Mcg/Act (PROAIR HFA 90 MCG/ACT) 8.5 Gm Hfa.aer.ad, 1-2 PUFF IH 3-4XD, INHALER 10/11/17 Past Medical/Surgical History Noncontributory Hx Smoking: Yes (1/2 ppd x 18 yrs) Smoking Status: Current: Every Day Smoker Exposure to Second Hand Smoke?: Yes Hx Substance Use Disorder: No Hx Alcohol Use: No Constitutional Vital Sign - Last 24 Hours 03/04/19 03/04/19 21:49 22:30 Temp 97.8 Pulse 94 86 Resp 16 B/P (MAP) 117/63 142/64 (90) Pulse Ox 98 96 O2 Delivery Room Air Physical Exam Examination of the Right hand reveals no acute deformity. The patient is able to give a thumbs up sign, is able to make an okay sign, and is able to AB duct the fingers. Sensation is intact over the dorsal 1st web space, the volar aspect of the 2nd finger, and the volar aspect of the 5th finger. Capillary refill is brisk. Patient does have a healing abrasion to the dorsum of the hand as well as the hyperthenar eminence no need for primary repair Medical Decision Making EKG/Imaging Imaging FACILITY: [facility] [place] PATIENT NAME: Miguel Moore : 1985 MR: [id number] V: [id number] EXAM DATE: ORDERING PHYSICIAN: IVETTE NAGEL TECHNOLOGIST: Location: [facility] Patient: Miguel Moore : 1985 Visit/Account:[id number] Date of Sevice: 03/04/2019 Exam type: 3 views right hand History: attacked by rooster Comparison: None. Findings: There is no acute fracture of the right hand. 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 Carpus aligns appropriately. Soft tissues are unremarkable. IMPRESSION: 1. No acute fracture of the right hand. 2. 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 Report Dictated By: Nick Newberry MD at 03/04/2019 10:17 PM Report E-Signed By: Nick Newberry MD at 03/04/2019 10:19 PM [id number] ED Course/Re-evaluation ED Course Plan at this time will be to update tetanus status. Patient on oral antibiotics for mild cellulitis. We'll also give IM Rocephin. Decision to Disposition Date: Mar 04, 2019 Decision to Disposition Time: 23:00 Depart Departure Latest Vital Signs Vital Signs Date Time Temp Pulse Resp B/P (MAP) Pulse Ox O2 Delivery O2 Flow Rate FiO2 03/04/19 22:30 86 142/64 (90) 96 Room Air 03/04/19 21:49 97.8 16 Impression: Primary Impression: Cellulitis Condition: Improved Disposition: HOME OR SELF-CARE New Scripts Cephalexin 500 Mg Tab (KEFLEX 500 MG TAB) 500 Mg Tablet 500 MG PO Q6H, #28 TAB 0 Refills TAKE ONE TABLET BY MOUTH EVERY SIX HOURS Prov: IVETTE NAGEL MD 03/04/19 Patient Instructions: Cellulitis (DC) Problem Qualifiers Primary Impression: Cellulitis Site of cellulitis: extremity Site of cellulitis of extremity: upper extremity Laterality: right Qualified Codes: L03.113 - Cellulitis of right upper limb IVETTE NAGEL MD Mar 04, 2019 22:38
== END 2019-03-04 22:45 | disposition home or self-care (01) ==
LOC: ER 22:06
DX: L03.113 Cellulitis of right upper limb (principal); W55.89XA Other contact with other mammals, initial encounter
CPT/HCPCS: 73130; 90471; 90715; 96372; 99284; J0696; J2001